=== PATIENT | male | born 1970 | race Caucasian/White ===

== ENCOUNTER → 2023-04-20 10:26 | Outpatient (BNVA) | payer MEDICARE, MEDICAID, SELFPAY | PROVIDERS: PCP Family Medicine; Referring Provider Family Medicine; Visit Provider Dermatology | DX: L30.0 Nummular dermatitis (principal); D22.39 Melanocytic nevi of other parts of face; D22.5 Melanocytic nevi of trunk | CPT/HCPCS: 99213 ==

== ENCOUNTER → 2024-04-12 10:39 | Outpatient (BNVA) | payer MEDICARE, MEDICAID, SELFPAY | PROVIDERS: PCP Family Medicine; Referring Provider Family Medicine; Visit Provider Student in an Organized Health Care Education/Training Program | DX: M16.11 Unilateral primary osteoarthritis, right hip; M25.851 Other specified joint disorders, right hip | CPT/HCPCS: 73502; 99204 ==

== ENCOUNTER → 2024-05-28 13:53 | Outpatient (BNVA) | payer MEDICARE, MEDICAID, SELFPAY | PROVIDERS: PCP Family Medicine; Visit Provider Student in an Organized Health Care Education/Training Program | DX: M17.11 Unilateral primary osteoarthritis, right knee | CPT/HCPCS: 20610; 73560; 73562; 73565; 99213; J3301 ==

== ENCOUNTER → 2024-07-12 08:01 | Outpatient (BNVA) | payer MEDICARE, MEDICAID, SELFPAY | PROVIDERS: PCP Family Medicine; Visit Provider Student in an Organized Health Care Education/Training Program | DX: M16.11 Unilateral primary osteoarthritis, right hip (principal) | CPT/HCPCS: 20610; 77002; J3301 ==

== ENCOUNTER → 2024-12-24 09:10 | Outpatient (BNVA) | payer MEDICARE, MEDICAID, SELFPAY | PROVIDERS: PCP Family Medicine; Visit Provider Student in an Organized Health Care Education/Training Program | DX: M21.372 Foot drop, left foot (principal); M16.11 Unilateral primary osteoarthritis, right hip; M25.372 Other instability, left ankle | CPT/HCPCS: 99213 ==

== ENCOUNTER 2024-12-24 10:08 | Outpatient (CLI) | payer MEDICARE, MEDICAID, SELFPAY | END 2024-12-24 10:09 | disposition home or self-care (01) | LOC: SPT 10:10 | PROVIDERS: PCP Family Medicine; Visit Provider Student in an Organized Health Care Education/Training Program | DX: Z46.89 Encounter for fitting and adjustment of other specified devices (principal); M25.372 Other instability, left ankle; M24.572 Contracture, left ankle | CPT/HCPCS: 97760; L1902 ==

== ENCOUNTER 2025-07-02 05:01 | Observation (INO) | payer OTHER, MEDICAID, SELFPAY ==
[2025-07-02] VITALS (16 sets, daily range): BP systolic 118–181; BP diastolic 71–118; PULSE 81–128; RESP 16–20; TEMP 36.8–38.5; O2SAT 90–93; BMI 24.3; BMI 25.8
--- OUTSIDE RECORDS SUMMARY | 2025-07-02 05:09 | XMS_ITS | Clinical Summary ---
Author Organization [employer] Address [address] [facility] [address] Parker: Epic Prelude ADT [place] [address] Care Team Providers Care Substitute School Nurse Name Role Phone Unavailable Primary Care Provider Unavailabl e Allergies Active Allergy Reactions Criticality Noted Date Comments Fish Containing Products Hives High 11/03/2015 Heparin Hives High 11/03/2015 Penicillins Hives High 11/03/2015 Tomato Hives High 11/03/2015 Medications clonazePAM (KlonoPIN) 0.5 mg Tablet Take 0.5 mg by mouth 2 times daily. Active bisacodyL (DULCOLAX) 10 mg Suppository Insert 10 mg by rectum daily. Active ESCITALOPRAM OXALATE ORAL Take 20 mg by mouth one time only. Active gabapentin (NEURONTIN) 600 mg tablet Take 600 mg by mouth 4 times daily. Active guaiFENesin (HUMIBID) 400 mg Tablet Take 400 mg by mouth every 4 hours. Active ibuprofen (MOTRIN) 800 mg tablet Take 800 mg by mouth every 6 hours as needed for Pain, Mild. Active lisinopriL (PRINIVIL) 20 mg tablet Take 20 mg by mouth daily. Active mirtazapine (REMERON) 30 mg tablet Take 30 mg by mouth daily at bedtime. Active naloxone HCl (NALOXONE INJECTION) 2 mL by Injection route. Active HYDROcodone-acet aminophen (NORCO) 10-325 mg Tablet Take 1 Tablet by mouth every 4 hours as needed for Pain, Moderate. Active omeprazole (PriLOSEC) 40 mg Capsule, Delayed Release(E.C.) Take 40 mg by mouth 2 times daily. Active OXcarbazepine (TRILEPTAL) 600 mg tablet Take 600 mg by mouth 3 times daily. Active albuterol sulfate HFA 90 mcg/actuation aerosol inhaler Take 2 Puffs by inhalation every 6 hours as needed for Shortness of Breath. Active medroxyPROGESTER one (PROVERA) 5 mg tablet Take 5 mg by mouth daily. Active QUEtiapine (SEROquel) 100 mg tablet Take 100 mg by mouth daily at bedtime. Active risperiDONE (RisperDAL) 2 mg tablet Take 2 mg by mouth 2 times daily. Active tamsulosin (FLOMAX) 0.4 mg capsuleIndicatio ns:Urinary hesitancy,BPH with obstruction/lowe r urinary tract symptoms Take 1 Capsule (0.4 mg) by mouth daily. 90 Capsule 4 4 Active tiZANidine (ZANAFLEX) 2 mg Tablet Take 2 mg by mouth 2 times daily. Active cetirizine (ZyrTEC) 10 mg tablet Take 10 mg by mouth daily. Active clobetasoL (TEMOVATE) 0.05 % Ointment Apply to affected area 2 times daily. Active DOCUSATE CALCIUM ORAL Take by mouth. Activ e aluminum - magnesium - simethicone (MYLANTA) 200-200-20 mg/5 mL Suspension Take 10 mL by mouth every 6 hours as needed for Dyspepsia. Active amLODIPine (NORVASC) 10 mg tablet Take 10 mg by mouth daily. Active atorvastatin (LIPITOR) 40 mg tablet Take 40 mg by mouth daily. Active baclofen (LIORESAL) 20 mg tablet Take 20 mg by mouth 3 times daily. Active busPIRone (BUSPAR) 15 mg Tablet Take 15 mg by mouth 3 times daily. Active oxyBUTYnin (DITROPAN XL) 5 mg Extended Release 24 hour tablet Take 1 Tablet (5 mg) by mouth daily. 30 Tablet 3 5 Active Active Problems Problem Noted Date Diagnosed Date Seizure 02/18/2025 Primary osteoarthritis of right knee 05/09/2017 Old complex tear of lateral meniscus of right kn ee 04/04/2017 Chondromalacia of knee 04/04/2017 Cigarette dependence 11/15/2016 Hemiplegia and hemiparesis f ollowing cerebral infarction affecting left non-dominant side 11/12/2016 Chronic right-sided low back pain without sciati ca 11/12/2016 Iliofemoral ligament sprain of left hip - MRI confirmed tear 04/26/2016 Hyperlipidemia 01/22/2016 Pulmonary emphysema 01/22/2016 Post-traumatic seizures 01/22/2016 Encephalopathy, unspecified 01/22/2016 Neuralgia and neuritis, unspecified 01/22/2016 Impacted cerumen, bilateral 01/22/2016 Essential hypertension 01/22/2016 Heart failure, unspecified 01/22/2016 Other asthma 01/22/2016 Depressive disorder, not elsewhere classified Antisocial personality disorder 01/22/2016 Generalized anxiety disorder 01/22/2016 Hereditary and idiopathic neuropathy, unspecifie d 01/22/2016 Dry eye syndrome of both lacrimal glands 016 Nausea 01/22/2016 Nutritional deficiency 01/22/2016 Local infection of the skin and subcutaneous tissue, unspecified 01/22/2016 Functional dyspepsia 01/22/2016 Constipation 01/22/2016 Primary insomnia 01/22/2016 Cough 01/22/2016 Acute gastric ulcer without hemorrhage or perfor ation 01/22/2016 Chronic gastric ulcer withou t hemorrhage and without perforation 01/22/2016 Restlessness and agitation 01/22/2016 Arthritis of left hip 01/22/2016 Encounters Date Type Department Care Team Description 06/30/2025 Orders Only [facility] [place] [phone] Micheline Rizo FNP BPH with obstruction/lower urinary tract symptoms (Primary Dx); Urinary hesitancy; Gross hematuria 06/24/2025 External Device Data STL ABSTRACTION Provider, Abstract 06/19/2025 Results Follow-Up [facility] [place] [phone] Michleine Rizo FNP XR VIDEOURODYNAMICS 06/18/2025 6:43 AM CDT - 06/18/2025 11:59 PM CDT Hospital Encounter [facility] [address] [place] [phone] Micheline Rizo FNP Discharge Disposition: Home or Self Care 05/14/2025 External Device Data STL ABSTRACTION Provider, Abstract 04/23/2025 External Device Data STL ABSTRACTION Provider, Abstract 04/23/2025 External Device Data STL ABSTRACTION Provider, Abstract 04/10/2025 Orders Only [facility] [address] [facility] [address] [place] [phone] Mariel Morales RN Urinary hesitancy (Primary Dx); BPH with obstruction/lower urinary tract symptoms 04/10/2025 [facility]phone [facility] [place] [address] [place] [address] Micheline Rizo FNP Needs Orders Written 04/09/2025 Abstract [facility] [address] [facility] [address] [place] [address] Yasmeen Robels 04/08/2025 9:00 AM CDT [facility] [place] [address] [place] [address] Micheline Rizo FNP BPH with obstruction/lower urinary tract symptoms (Primary Dx); Urinary hesitancy; Elevated PSA from Last 3 Months Family History Medical History Relation Name Comments Blindness Maternal Grandmother Cataract Maternal Grandmother Macular Degen Maternal Grandmother Relation Name Status Comments Maternal Grandmother Social History Tobacco Use Types Packs/Day Years Used Date Smoking Tobacco: Every Day Cigarettes Smokeless Tobacco: Never Tobacco Cessation:Ready to Q uit: Not Asked; Counseling Given: Not Answered Alcohol Use Standard Drinks/Week Comments No 0 (1 standard drink = 0.6 oz pur e alcohol) Sex and Gender Information Value Date Recorded Sex Assigned at Not on file Legal Sex Male 12:32 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 Gender Identity Not on file Sexual Orientation Not on file Last Filed Vital Signs Vital Sign Reading Time Taken Comments Blood Pressure 118/74 02/18/2025 11:34 AM CDT Pulse 87 02/18/2025 11:34 AM CDT Temperature 37.1 C (98.8 F) 02/18/2025 11:34 AM CDT Respiratory Rate 20 02/18/2025 11:3 4 AM CDT Oxygen Saturation 94% 02/18/2025 11: 34 AM CDT Inhaled Oxygen Concentration - - Weight 91.5 kg (201 lb 12.8 oz) 025 11:34 AM CDT Height 193 cm (6' 4 ) 02/18/2025 11:34 AM CDT Body Mass Index 24.56 02/18/2025 11:34 AM CDT Plan of Treatment Upcoming Encounters Date Type Department Care Team (Late st Contact Info) Description 07/17/2025 9:30 AM CDT Office Visit [facility] [address] [place] [address] Micheline Rizo FNP [address] [place] [address] 08/19/2025 10:00 AM APPARATUS CLEANER Appointment [facility] [place] [address] [place] [address] Gian Walton MD [address] [place] [address] Health Maintenance Due Date Last Done Comments Pre-Diabetes and Diabetes Screening 1970 HEPATITIS B VACCINES (1 of 3 - 19+ 3-dose series) 1987 DTAP/TDAP/TD VACCINES (1 - Tdap) 01/20/2006 01/20/20 06 FIT-DNA Q 3 years 2013 FIT/FOBT Q 1 year 2013 Flex Sig/CT Colonography Q 5 years 2013 ZOSTER VACCINE (1 of 2) 2018 INFLUENZA VACCINE (#1) 2025 COLORECTAL SCREENING 07/08/2025 07/08/2015, 07/08/20 15 Colorectal Cancer Screening 07/08/2025 Procedures Procedure Name Priority Date/Time Associated Diagnosis Comments XR VIDEOURODYNAMICS Routine 06/18/2025 8 :22 AM CDT Urinary hesitancy BPH with obstruction/lower urinary tract symptoms from Last 3 Months Results * XR VIDEOURODYNAMICS (06/18/2025 8:22 AM CDT) Anatomical Region Laterality Modality Pelvis Computed Radiogr aphy Impressions 06/18/2025 1:40 PM CDT : Detrusor function is present with findings compatible with OAB and obstruction-clinical correlation needed Florin Elias MD Narrative 06/18/2025 1:40 PM CDT COMPLEX VIDEO URODYNAMICS DATE: @ENCDATE@ UROFLOW: The patient voided 150 ml at a peak flow of 44 ml/sec for the baseline flow test with a 2 with a strain pattern residual. CYSTOMETRY: The 7-Vietnamese urodynamic catheter, rectal catheter, and patch EMG electrodes were placed. Filling rate was 40 ml/min. First sensation of filling was noted at 85 ml. Bladder capacity was 185 ml. The bladder capacity was reached, so we stopped filling. A high pressure uninhibited detrusor contraction occurred and resulted in voiding all bladder contents The pressure was about 50 cm H2O. There was moderate EMG activity present. [place] PRESSURE TESTING: Stress maneuvers were used at bladder capacity. The bladder neck was closed. All video loops were negative for stress incontinence. FLOW PRESSURE STUDY: For the flow pressure study the patient could not void anymore as his bladder was empty Micheline Rizo DIE CASTING MACHINE SETTER DIAGNOSTIC IMAGING ORDERAB LES Final Result from Last 3 Months Insurance [facility] DUAL COMPLETE O [facility] [id number] [facility] [id number] [facility] [place] [id number] RX [employer] RX Member Subscriber Plan / Payer (Ef fective 2024-Present) Name:Cy Blankenship Relation to Subscriber:Not on file Name:Cy Blankenship Subscriber ID:Not on file Date of :1970 Payer ID:Not on file Group ID:[id number] Type:RX Medicare Part D Address: [place] RODRIGUEZ
--- OUTSIDE RECORDS SUMMARY | 2025-07-02 05:09 | XMS_ITS | Encounter Summary ---
Author Organization [facility] Address [address] [place] [address] Care Team Providers Care Oil Sprayer Name Role Phone Juan Watson MD Primary Care Provider Reason for Visit * Reason Comments Med Refill Encounter Details Date Type Department Care Team (Late st Contact Info) Description 02/24/2025 Refill [facility] [place] - Primary Care [address] [place] [address] Juna Watson MD [address] [facility] [place] [address] Chronic pain syndrome Social History Tobacco Use Types Packs/Day Years Used Date Smoking Tobacco: Every Day Cigarettes Smokeless Tobacco: Never Alcohol Use Standard Drinks/Week Comments Defer 0 (1 standard drink = 0.6 oz pur e alcohol) PHQ-2 Answer Date Recorded PHQ-2 Score 0 10/28/2024 Sex and Gender Information Value Date Recorded Sex Assigned at Not on file Legal Sex Male 2:52 PM CDT Gender Identity Not on file Sexual Orientation Not on file documented as of this encounter Plan of Treatment Not on file documented as of this encounter Visit Diagnoses Diagnosis Chronic pain syndrome documented in this encounter Additional Health Concerns Health Status Noted Date Alive and well 03/21/2023 Assessment Noted Time PHQ-9 Depression Total Score: 0 10/28/19 25 1:57 PM SCHOOL 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
--- OUTSIDE RECORDS SUMMARY | 2025-07-02 05:09 | XMS_ITS | Encounter Summary ---
Author Organization [employer] Address [address] [place] [address] Care Team Providers Care Reed Man Name Role Phone Unavailable Primary Care Provider Unavailabl e Reason for Referral * Outpatient Services (Routine) - Authorized Specialty Diagnoses / Procedures Referred By Jennifer jewell Referred To Contact Diagnoses BPH with obstruction/lower urinary tract symptoms Urinary hesitancy Procedures CYSTOSCOPY Micheline Rizo FNP [address] [place] [address] [address] [place] [address] Phone: tel: fax: Referral ID Status Reason Start Date Expiration Date V isits Requested Visits Authorized [id number] Authorized 07/01/2025 09/29/2025 1 1 Encounter Details Date Type Department Care Team (Late st Contact Info) Description 06/30/2025 Orders Only [facility] [address] [address] Micheline Rizo FNP [address] [place] [phone] BPH with obstruction/lower urinary tract symptoms (Primary Dx); Urinary hesitancy; Gross hematuria Social History Tobacco Use Types Packs/Day Years Used Date Smoking Tobacco: Every Day Cigarettes Smokeless Tobacco: Never Alcohol Use Standard Drinks/Week Comments No 0 (1 standard drink = 0.6 oz pur e alcohol) Sex and Gender Information Value Date Recorded Sex Assigned at Not on file Legal Sex Male 12:32 PM 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 TESTER Gender Identity Not on file Sexual Orientation Not on file documented as of this encounter Plan of Treatment Upcoming Encounters Date Type Department Care Team (Late st Contact Info) Description 07/17/2025 9:30 AM CDT Office Visit [facility] [address] [place] [phone] Micheline Rizo FNP [address] [facility] [address] [place] [address] 08/19/2025 10:00 AM DAIRY TESTER Appointment [facility] Neu[facility] [address] [place] [address] Gian Walton MD [address] [place] [phone] Scheduled Orders Name Type Priority Associated Diagnoses Orde r Schedule CYSTOSCOPY Procedure Routine BPH with obstruction/lower urinary tract symptoms Urinary hesitancy Expected: 07/17/2025, Expires: 10/15/2025 documented as of this encounter Visit Diagnoses Diagnosis BPH with obstruction/lower urinary tract symptoms- Primary Hypertrophy of prostate with urinary obstruction and other lower urinary tract symptoms (LUTS) Urinary hesitancy Gross hematuria documented in this encounter
--- OUTSIDE RECORDS SUMMARY | 2025-07-02 05:09 | XMS_ITS | Encounter Summary ---
Author Organization [facility] Address [address] [place] [address] Care Team Providers Care Rn Managed Care Name Role Phone Juan Watson MD Primary Care Provider Reason for Visit * Reason Comments Med Refill Encounter Details Date Type Department Care Team (Late st Contact Info) Description 02/24/2025 Refill [facility] [place] - Primary Care [address] [place] [address] Min Godwin MD [address] [facility] [address] [place], [place] [id number] Chronic pain syndrome Social History Tobacco Use [...] Total Score: 0 10/28/19 25 1:57 PM 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
--- OUTSIDE RECORDS SUMMARY | 2025-07-02 05:09 | XMS_ITS | Clinical Summary ---
Author Organization [facility] Address [address] [place] [address] Care Team Providers Care Tool And Die Assembler Name Role Phone Juan Watson MD Primary Care Provider Allergies Active Allergy Reactions Criticality Noted Date Comments Adhesive Unknown 03/16/2023 Fish Containing Products Unknown 03/16/2023 Heparin Unknown 03/16/2023 Penicillin Unknown 03/16/2023 Tomato Unknown 03/16/2023 Medications amLODIPine (NORVASC) 10 MG tablet Take 10 mg by mouth in the morning. Active atorvastatin (LIPITOR) 40 MG tablet Take 40 mg by mouth nightly. Active baclofen (LIORESAL) 20 MG tablet Take 20 mg by mouth in the morning and 20 mg at noon and 20 mg in the evening. Active bisacodyL (DULCOLAX) 5 mg EC tablet Take 10 mg by mouth daily as needed. Active menthol 2 % gel Apply 1 Application topically as needed in the morning and 1 Application as needed in the evening. Active busPIRone (BUSPAR) 10 MG tablet Take 10 mg by mouth in the morning and 10 mg in the evening. Active clonazePAM (KLONOPIN) 1 MG tablet Take 1 mg by mouth in the morning and 1 mg in the evening. Active fluticasone propionate (FLOVENT DISKUS) 50 mcg/actuation diskus inhaler Inhale 1 puff in the morning and 1 puff in the evening. Active gabapentin (NEURONTIN) 300 mg capsule Take 300 mg by mouth in the morning and 300 mg at noon and 300 mg in the evening. Active alum-mag hydroxide-simeth (MAALOX) 200-200-20 mg/5 mL suspension Take 30 mL by mouth every 4 (four) hours as needed. Active hydrOXYzine (ATARAX) 25 MG tablet Take 25 mg by mouth in the morning and 25 mg in the evening. Active lisinopriL (PRINIVIL) 20 MG tablet Take 20 mg by mouth in the morning. Active magnesium hydroxide (MILK OF MAGNESIA) 2,400 mg/10 mL CONCENTRATED oral suspension Take 10 mL by mouth as needed in the morning and 10 mL as needed at noon and 10 mL as needed in the evening and 10 mL as needed before bedtime. Active OXcarbazepine (TRILEPTAL) 600 MG tablet Take 600 mg by mouth in the morning and 600 mg at noon and 600 mg in the evening. Active albuterol 90 mcg/puff inhl inhaler Inhale 2 puffs in the morning and 2 puffs at noon and 2 puffs in the evening. Active risperiDONE (RisperDAL) 3 MG tablet Take 3 mg by mouth in the morning and 3 mg in the evening. Active tiZANidine (ZANAFLEX) 2 MG tablet Take 2 mg by mouth in the morning and 2 mg in the evening. Active traZODone (DESYREL) 100 MG tablet Take 200 mg by mouth nightly. Active triamcinolone acetonide (KENALOG) 0.5% cream Apply 1 application. topically as needed in the morning and 1 application. as needed in the evening. Active cetirizine (ZyrTEC) 10 MG tablet Take 10 mg by mouth in the morning. Active fluticasone propionate (FLONASE) 50 mcg/actuation nasal spray Administer 1 spray into each nostril in the morning. Active dextromethorphan -guaifenesin (MUCINEX-DM) 30-600 mg tablet Take 1 tablet by mouth every 12 (twelve) hours. Active HYDROcodone-acet aminophen (NORCO) 10-325 mg per tabletIndication s:Chronic pain syndrome Take 1 tablet by mouth every 12 (twelve) hours. Max Daily Amount: 2 tablets 60 tablet 06/16/20 25 Active HYDROcodone-acet aminophen (NORCO) 10-325 mg per tabletIndication s:Chronic pain syndrome Take 1 tablet by mouth every 12 (twelve) hours. Max Daily Amount: 2 tablets 60 tablet 05/02/20 25 08/27/2 025 Discontin ued(Reord er) HYDROcodone-acet aminophen (NORCO) 10-325 mg per tabletIndication s:Chronic pain syndrome Take 1 tablet by mouth every 12 (twelve) hours. 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) 03/16/2023 Antisocial personality disorder 03/16/2023 Gastric ulcer 03/16/2023 Mixed hyperlipidemia 03/16/2023 Pemphigus 03/16/2023 Seizure disorder 03/16/2023 Neuropathy 03/16/2023 Dry eye syndrome of both eyes 03/16/2023 Primary insomnia 03/16/2023 Dental caries 03/16/2023 Other constipation 03/16/2023 Flail joint, right knee 03/16/2023 Old complex tear of lateral meniscus of right kn ee 04/04/2017 Chronic gastric ulcer withou t hemorrhage and without perforation 01/22/2016 Resolved Problems Problem Noted Date Diagnosed Date Resolved Date Chronic abdominal pain 09/21/202308/05 CHF (congestive heart failure) 03/16/2023 11/07/2023 Vitamin deficiency 03/16/2023 Iliofemoral ligament sprain of left hip 04/26/2016 11/04/2024 Encounters Date Type Department Care Team Description 06/16/2025 Refill [facility] [place] - [facility] [address] [facility] [address] [place] [address] Marlene [place]e RN Chronic pain syndrome 06/04/2025 Refill [facility] [place] - [facility] [address] [facility] [address] [place] [address] Marlene [place]e RN Chronic pain syndrome 05/01/2025 Refill [facility] [place] - [facility] [address] [facility] [address] [place] [address] Marlene [place]e RN Chronic pain syndrome 04/01/2025 Refill [facility] [place] - Primary Care [address] [facility] [address] [place] [address] Mitali Haddad LPN Chronic pain syndrome from Last 3 Months Social History Tobacco Use Types Packs/Day Years Used Date Smoking Tobacco: Every Day Cigarettes Smokeless Tobacco: Never Tobacco Cessation:Ready to Q uit: Not Asked; Counseling Given: Not Answered Alcohol Use Standard Drinks/Week Comments Defer 0 [...] Sign Reading Time Taken Comments Blood Pressure 120/64 06/23/2025 9:44 AM CDT Pulse 57 06/23/2025 9:44 AM CDT Temperature 37 C (98.6 F) 06/23/2025 9:44 AM CDT Respiratory Rate 16 06/23/2025 9:44 AM CDT Oxygen Saturation 96% 06/23/2025 9:44 AM CDT Inhaled Oxygen Concentration - - Weight 87.8 kg (193 lb 9.6 oz) 06/23/2025 9:44 A M CDT Height 182.9 cm (6') 06/23/2025 9:44 AM CDT Body Mass Index 26.26 06/23/2025 9:44 AM CDT Plan of Treatment Health Maintenance Due Date Last Done Comments Hepatitis B Vaccines (1 of 3 - 19+ 3-dose series) 1987 Pneumococcal Vaccine: 50+ Years (1 of 2 - PCV) 1987 Td, Tdap Vaccines Adult 1987 Colonoscopy 2013 Shingrix (ZOSTER RECOMBINANT) (1 of 2) 2018 Influenza Vaccination (#1) 2025 Medicare Annual Wellness 03/14/2026 025, 03/14/2025, 12/29/2023, Additional history exists HIB Vaccines Aged Out No longer eligi ble based on patient's age to complete this topic HPV Vaccines Aged Out No longer eligi ble based on patient's age to complete this topic Hepatitis A Vaccines Aged Out No long er eligible based on patient's age to complete this topic IPV Vaccines Aged Out No longer eligi ble based on patient's age to complete this topic Meningococcal Vaccines Aged Out No lo nger eligible based on patient's age to complete this topic RSV Mab Nirsevimab (Beyfortus) <20 months Aged Out No longer eligibl e based on patient's age to complete this topic Rotavirus Vaccines Aged Out No longer eligible based on patient's age to complete this topic [place] [address] [place] [address] DUAL COMPLETE [facility] Care Teams Tool And Die Assembler Relationship Specialty Start Date End Date Juan Watson MD [address] [place] [id number] PCP - General Family Medicine 03/15/23
--- OUTSIDE RECORDS SUMMARY | 2025-07-02 05:09 | XMS_ITS | Encounter Summary ---
Author Organization [facility] Address [address] [place] [address] Care Team Providers Care Skiing Teacher Name Role Phone Unavailable Primary Care Provider Unavailabl e Encounter Details Date Type Department Care Team (Late st Contact Info) Description 06/24/2025 External Device Data [place] ABSTRACTION Provider, Abstract NO ADDRESS ON FILE Social History Tobacco Use Types Packs/Day Years Used Date Smoking Tobacco: Every Day Cigarettes Smokeless Tobacco: Never Alcohol Use Standard Drinks/Week Comments No 0 (1 standard drink = 0.6 oz pur e alcohol) Sex and Gender Information Value Date Recorded Sex Assigned at Not on file Legal Sex Male 12:32 PM NURSERY SUPERVISOR Gender Identity Not on file Sexual Orientation Not on file documented as of this encounter Plan of Treatment Upcoming Encounters Date Type Department Care Team (Late st Contact Info) Description 07/17/2025 9:30 AM CDT Office Visit [facility] Urology [address] [phone] Micheline Rizo FNP [address] [place] [phone] 08/19/2025 10:00 AM NURSERY SUPERVISOR Appointment [facility] Neurology [facility] [place] [address] [place] [address] Gian Walton MD [address] [place] [phone] documented as of this encounter Visit Diagnoses Not on filedocumented in this encounter
--- OUTSIDE RECORDS SUMMARY | 2025-07-02 05:09 | XMS_ITS | Encounter Summary ---
Author Organization [facility] Address [address] [place] [address] Care Team Providers Care Seam Presser Name Role Phone Juan Watson MD Primary Care Provider Encounter Details Date Type Department Care Team (Late st Contact Info) Description 01/31/2024 Orders Only [facility] [place] [facility] [address] [place] [address] Mitali Haddad LPN Social History Tobacco Use Types Packs/Day Years Used Date Smoking Tobacco: Every Day Cigarettes Smokeless Tobacco: Never Alcohol Use Standard Drinks/Week Comments Defer 0 (1 standard drink = 0.6 oz pur e alcohol) PHQ-2 Answer Date Recorded PHQ-2 Score 0 01/01/2024 Sex and Gender Information Value Date Recorded Sex Assigned at Not on file Legal Sex Male 2:52 PM CDT Gender Identity Not on file Sexual Orientation Not on file documented as of this encounter Plan of Treatment Not on file documented as of this encounter Visit Diagnoses Not on filedocumented in this encounter Additional Health Concerns Health Status Noted Date Alive and well 03/21/2023 Assessment Noted Time A fall risk assessment has been complete d for the patient 01/01/2024 12:52 PM CDT documented as of this encounter Care Teams Seam Presser Relationship Specialty Start Date End Date Juan Watson MD [address] [place] [address] PCP - General Family Medicine 03/15/23 documented as of this encounter
--- OUTSIDE RECORDS SUMMARY | 2025-07-02 05:09 | XMS_ITS | Encounter Summary ---
Author Organization [facility] Address [address] [place] [address] Care Team Providers Care Nursery Rn Name Role Phone Unavailable Primary Care Provider Unavailabl e Encounter Details Date Type Department Care Team (Late st Contact Info) Description 03/26/2002 Outpatient Historical [facility] Tho Lal MD [address] [phone] Social History Tobacco Use Types Packs/Day Years Used Date Smoking Tobacco: Never Assessed Sex and Gender Information Value Date Recorded Sex Assigned at Not on file Legal Sex Male 12:32 PM COLORIST Gender Identity Not on file Sexual Orientation Not on file documented as of this encounter Plan of Treatment Upcoming Encounters Date Type Department Care Team (Late st Contact Info) Description 07/17/2025 9:30 AM CDT Office Visit [facility] Urology [address] [address] Mciheline Rizo FNP [address] [place] [address] [address] [place] [phone] 08/19/2025 10:00 AM COLORIST Appointment [facility] Neurology Clinic [place] [address] [place] [address] Gian Walton MD [address] [place] [phone] documented as of this encounter Visit Diagnoses Not on filedocumented in this encounter
--- OUTSIDE RECORDS SUMMARY | 2025-07-02 05:09 | XMS_ITS | Encounter Summary ---
Author Organization [facility] Address [address] [place] [address] Care Team Providers Care Flute Polisher Name Role Phone Unavailable Primary Care Provider Unavailabl e Encounter Details Date Type Department Care Team (Late Contact Info) Description 06/19/2025 Results Follow-Up [address] [phone] Micheline Rizo FNP [address] [place] [phone] [facility]R [facility] Social History Tobacco Use Types Packs/Day Years Used Date Smoking Tobacco: Every Day Cigarettes Smokeless Tobacco: Never Alcohol Use Standard Drinks/Week Comments No 0 (1 standard drink = 0.6 oz pur e alcohol) Sex and Gender Information Value Date Recorded Sex Assigned at Not on file 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 Gender Identity Not on file Sexual Orientation Not on file documented as of this encounter Plan of Treatment Upcoming Encounters Date Type Department Care Team (Late Contact Info) Description 07/17/2025 9:30 AM CDT Office Visit [address] [phone] Micheline Rizo FNP [address] [place] [phone] 08/19/2025 10:00 AM MCAT TUTOR Appointment [facility] [place] [address] [place] [address] Gian Walton MD [address] [place] [address] documented as of this encounter Visit Diagnoses Not on filedocumented in this encounter
--- OUTSIDE RECORDS SUMMARY | 2025-07-02 05:09 | XMS_ITS | Encounter Summary ---
Author Organization [facility] Address 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 Gender Identity Not on file Sexual Orientation Not on file documented as of this encounter Plan of Treatment Upcoming Encounters Date Type Department Care Team (Late st Contact Info) Description 07/17/2025 9:30 AM CDT Office Visit [facility] Urology [address] [phone] Micheline Rizo FNP [address] [place] [address] [address] [place] [phone] 08/19/2025 10:00 AM MAIL ROOM CLERK Appointment [facility] Neurology Clinic [place] [address] [place] [address] Gian Walton MD [address] [place] [phone] documented as of this encounter Visit Diagnoses Not on filedocumented in this encounter
--- NOTE | 2025-07-02 05:11 | XRR_ITS ---
PROCEDURE INFORMATION: Exam: XR Chest Exam date and time: 07/02/2025 5:15 AM Age: 54 years old Clinical indication: Fever; Additional info: Possible sepsis TECHNIQUE: Imaging protocol: Radiologic exam of the chest. Views: 1 view. COMPARISON: No relevant prior studies available. FINDINGS: Lungs: Unremarkable. No consolidation. Pleural spaces: Unremarkable. No pleural effusion. No pneumothorax. Heart/Mediastinum: Unremarkable. No cardiomegaly. Bones/joints: Unremarkable. XR/XR chest 1V portable [id number] IMPRESSION: No acute findings.
--- NOTE | 2025-07-02 05:15 | ECG_ITS ---
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 Measurements Intervals Parks Rate: 126 P: 63 [place]: 183 QRS: 73 QRSD: 89 T: 80 QT: 335 QTc: 486 Interpretive Statements SINUS TACHYCARDIA NONSPECIFIC T-WAVE ABNORMALITY ABNORMAL RHYTHM ECG No previous ECG available for comparison Electronically Signed On 07-02-2025 22:15:32 CDT by Toney Rodriguez M.D. [email or web address]
--- NOTE | 2025-07-02 05:16 | W.ED.FEVER ---
Documented by User: Al Mayen MD 07/02/25 05:46 HPI - Fever General: Chief Complaint: Fever Stated Complaint: possible sepsis Time Seen by Provider: 07/02/25 05:01 Source: patient and EMS Mode of arrival: EMS Limitations: no limitations History of Present Illness: 54-year-old male here from long term he has had a previous massive stroke he states he is really only able to stand to transfer and is wheelchair-bound. He states that over the last 2 days he has had slight cough fever chills and is not feeling well. He denies any pain anywhere he has a history of skin abrasion ulcers to bilateral buttocks with minimal skin breakdown. Per EMS patient was found tonight tachycardic in febrile at 103. Here he is febrile tachycardic in 130s blood pressure has been hypertensive blood pressure currently is 167/110. She denies any abdominal chest pain. Associated symptoms: Reports chills Related Data Home Medications ?Medication ?Instructions ?Recorded ?Confirmed Lactobacillus acidophilus 10 mg PO DAILY 04/12/24 12/24/24 (Acidophilus capsule) acetaminophen 325 mg capsule 325 mg PO QID PRN 04/12/24 12/24/24 albuterol sulfate 90 mcg/actuation 1 inh inhalation QID 04/12/24 12/24/24 aerosol inhaler aluminum-mag hydroxide-simethicone 15 ml PO QID PRN 04/12/24 12/24/24 200 mg-200 mg-20 mg/5 mL oral susp (Brianna-Lanta) amlodipine 10 mg tablet 10 mg PO DAILY 04/12/24 12/24/24 atorvastatin 40 mg tablet 40 mg PO DAILY 04/12/24 12/24/24 baclofen 20 mg tablet 20 mg PO DAILY 04/12/24 12/24/24 bisacodyl 10 mg rectal suppository 10 mg [place] DAILY PRN 04/12/24 12/24/24 (Dulcolax (bisacodyl)) bisacodyl 5 mg tablet,delayed 5 mg PO DAILY 04/12/24 12/24/24 release buspirone 15 mg tablet 15 mg PO BID 04/12/24 12/24/24 carboxymethylcellulose sodium 1 % 1 drp ophthalmic (eye) BID 04/12/24 12/24/24 eye drops (Artificial Tears (carboxymethylcellulose)) celecoxib 100 mg capsule (Celebrex) 100 mg PO BID 04/12/24 12/24/24 cetirizine 10 mg tablet (Zyrtec) 10 mg PO DAILY PRN 04/12/24 12/24/24 clobetasol 0.05 % scalp solution 1 applic topical DAILY 04/12/24 12/24/24 clonazepam 0.5 mg tablet 0.25 mg PO BID 04/12/24 12/24/24 docusate sodium 100 mg capsule 100 mg PO DAILY 04/12/24 12/24/24 escitalopram oxalate 10 mg tablet 10 mg PO DAILY 04/12/24 12/24/24 fluticasone furoate 100 1 inh inhalation DAILY 04/12/24 12/24/24 mcg/actuation blister powder for inhalation gabapentin 600 mg tablet 600 mg PO DAILY 04/12/24 12/24/24 hydrocodone 10 mg-acetaminophen 1 tab PO Q6H PRN 04/12/24 12/24/24 325 mg tablet lisinopril 20 mg tablet 20 mg PO DAILY 04/12/24 12/24/24 magnesium hydroxide 2,400 mg/10 mL 5 ml PO DAILY PRN 04/12/24 12/24/24 oral suspension (Milk Of Magnesia Concentrated) menthol 2 % topical gel (Blue Gel) 1 applic topical DAILY PRN 04/12/24 12/24/24 mirtazapine 30 mg tablet 30 mg PO DAILY 04/12/24 12/24/24 naloxone 2 mg/2 mL syringe kit 2 mg IM Q2M PRN 04/12/24 12/24/24 omeprazole 40 mg capsule,delayed 40 mg PO DAILY 04/12/24 12/24/24 release oxcarbazepine 600 mg tablet 600 mg PO BID 04/12/24 12/24/24 risperidone 2 mg tablet 2 mg PO DAILY 04/12/24 12/24/24 trazodone 50 mg tablet 25 mg PO DAILY 04/12/24 12/24/24 triamcinolone acetonide 0.5 % 1 applic topical DAILY 04/12/24 12/24/24 topical cream Previous Rx's ?Medication ?Instructions ?Recorded Lace Up Ankle Brace #1 ea 12/24/24 Allergies Allergy/AdvReac Type Severity Reaction Status Date / Time adhesive tape Allergy Intermediate Unknown Verified 12/24/24 09:29 Fish Containing Products Allergy Intermediate Unknown Verified 12/24/24 09:29 heparin Allergy Intermediate Unknown Verified 12/24/24 09:29 Penicillins Allergy Intermediate Unknown Verified 12/24/24 09:29 tomato Allergy Intermediate Unknown Verified 12/24/24 09:29 Review of Systems Const: Reports: fever(s), chills and body aches Resp: Reports: non-productive cough : Denies: difficulty urinating PFSH ED PFSH: Medical History GERD (gastroesophageal reflux disease) Depression Hyperlipidemia HTN (hypertension) Degenerative joint disease of right hip Social History Smoking and tobacco/nicotine status: current every day tobacco/nicotine user Physical Exam Const: COMMON NORMALS: patient oriented x3 HENMT: COMMON NORMALS: normocephalic and atraumatic HEAD & SCALP: normocephalic and atraumatic Eye: COMMON NORMALS: conjunctivae normal CONJUNCTIVA: Yes conjunctivae normal Neck/C-Spine: COMMON NORMALS: full ROM and supple Chest: COMMONS NORMALS: normal inspection of the chest Resp: COMMON NORMALS: normal respiratory effort, No retractions, No use of accessory muscles and clear to auscultation bilaterally AUSCULTATION: clear to auscultation bilaterally Cardio: COMMON NORMALS: regular rhythm and No murmurs present (Cardio) RATE: tachycardic RHYTHM: regular rhythm GI: COMMON NORMALS: Normal to inspection, nondistended, normoactive bowel sounds present, Soft to palpation, non-tender and no masses PALPATION: Yes Soft to palpation Extremity: COMMON NORMALS: normal to inspection and full ROM OTHER: Very slight skin breakdown bilateral buttocks no ulcer no cellulitis Neuro: COMMON NORMALS: patient oriented x3, moves all extremities and no focal motor deficits Psych: COMMON NORMALS: mental status grossly normal, Normal thought process present and cooperative THOUGHT PROCESS: Normal thought process present Skin: COMMON NORMALS: no rashes or lesions noted and no wounds GENERAL SKIN EXAM: no rashes or lesions noted Course Vital Signs: Vital signs: Vital Signs Temperature 101.3 F H 07/02/25 05:01 Pulse Rate 123 H 07/02/25 06:42 Respiratory Rate 18 07/02/25 06:42 Blood Pressure 143/83 07/02/25 06:42 Pulse Oximetry 91 07/02/25 06:42 Oxygen Delivery Me thod Room Air 07/02/25 05:40 MDM - Fever Medical Decision Making Patient presents her long term with fever along with tachycardia and cough. Did order sepsis set including fluids and antibiotics and blood culture. Labs and imaging are all still pending at this time and care turned over to Dr. Vaughan. Medical Records I reviewed the patient's medical records. Lab Data I reviewed the patient's lab results. 07/02/25 05:40 07/02/25 05:40 Radiology Impressions Chest X-Ray 07/02/25 05:11 IMPRESSION: No acute findings. Laboratory Results WBC 16.89 10^3/uL (3.29-11.43) H 07/02/25 05:40 RBC 4.25 10^6/uL (3.85-5.65) 07/02/25 05:40 Hgb 12.20 g/dL (11.27-16.99) 07/02/25 05:40 Hct 37.2 % (37-53) 07/02/25 05:40 MCV 87.5 fl (82-101) 07/02/25 05:40 MCH 28.7 pg (27-33) 07/02/25 05:40 MCHC 32.8 g/dL (30-55) 07/02/25 05:40 RDW 13.1 % (12.1-15.1) 07/02/25 05:40 Plt Count 244 10^3/cmm (157-399) 07/02/25 05:40 MPV 7.7 fL (7.4-10.4) 07/02/25 05:40 Neut % (Auto) 83.4 % 07/02/25 05:40 Lymph % (Auto) 5.3 % 07/02/25 05:40 [place] % (Auto) 9.1 % 07/02/25 05:40 Eos % (Auto) 1.1 % 07/02/25 05:40 Baso % (Auto) 0.3 % 07/02/25 05:40 Neut # (Auto) 14.08 10^3/uL (1.8-7.7) H 07/02/25 05:40 Lymph # (Auto) 0.9 10^3/uL (0.8-4.8) 07/02/25 05:40 [place] # (Auto) 1.5 10^3/uL (0.2-0.9) H 07/02/25 05:40 Eos # (Auto) 0.2 10^3/uL (0.0-0.8) 07/02/25 05:40 Baso # (Auto) 0.1 10^3/uL (0.0-0.1) 07/02/25 05:40 Nucleated RBC % (auto) 0 % 07/02/25 05:40 Nucleated RBCs # 0.0 /100WBC 07/02/25 05:40 PT 13.20 SECONDS (12.1-14.9) 07/02/25 05:40 INR 0.93 (0.8-1.2) 07/02/25 05:40 Sodium 132 mmol/L (136-145) L 07/02/25 05:40 Potassium 4.2 mmol/L (3.5-5.1) 07/02/25 05:40 Chloride 94 mmol/L (98-107) L 07/02/25 05:40 Carbon Dioxide 27 mmol/L (22-29) 07/02/25 05:40 Anion Gap 15.2 (5-19) 07/02/25 05:40 BUN 15 mg/dL (6-20) 07/02/25 05:40 Creatinine 0.5 mg/dL (0.7-1.2) L 07/02/25 05:40 GFR Calculation 172.0 mL/min (90-130) H 07/02/25 05:40 Glucose 111 mg/dL (65-115) 07/02/25 05:40 Calculated Osmolality 276 mOsm/kg (285-295) L 07/02/25 05:40 Lactic Acid 2.2 mmol/L (0.5-2.2) 07/02/25 05:40 Calcium 8.8 mg/dL (8.5-10.5) 07/02/25 05:40 Magnesium 1.8 mg/dL (1.7-2.3) 07/02/25 05:40 Total Bilirubin 0.2 mg/dL (0.15-1.2) 07/02/25 05:40 AST 20 U/L (0-40) 07/02/25 05:40 ALT 17 U/L (0-41) 07/02/25 05:40 Alkaline Phosphatase 82 U/L (40-130) 07/02/25 05:40 Total Protein 7.1 g/dL (6.6-8.7) 07/02/25 05:40 Albumin 4.1 g/dL (3.5-5.2) 07/02/25 05:40 Globulin 3.0 g/dL (1.3-4.6) 07/02/25 05:40 Procalcitonin 0.21 ng/mL (0-0.5) 07/02/25 05:40 Urine Color Yellow (Yellow) 07/02/25 06:02 Urine Appearance Clear (CLEAR) 07/02/25 06:02 Urine pH 7.0 (5-7) 07/02/25 06:02 Ur Specific [place] 1.015 (1.005-1.030) 07/02/25 06:02 Urine Protein Negative (Negative) 07/02/25 06:02 Urine Glucose (UA) Negative (Normal) 07/02/25 06:02 Urine Ketones Negative (Negative) 07/02/25 06:02 Urine Blood Negative (Negative) 07/02/25 06:02 Urine Nitrate Negative (Negative) 07/02/25 06:02 Urine Bilirubin Negative (Negative) 07/02/25 06:02 Urine Urobilinogen 0.2 mg/dL (Negative) 07/02/25 06:02 Ur Leukocyte Esterase Negative (Negative) 07/02/25 06:02 Urine RBC 0-2 /hpf (0-2) 07/02/25 06:02 Urine WBC 0-5 /hpf (0-5) 07/02/25 06:02 Ur Squamous Epith Cells 0-5 /hpf (0-5) 07/02/25 06:02 Amorphous Sediment Not Reportable 07/02/25 06:02 Urine Bacteria None seen /hpf (NONE) 07/02/25 06:02 Hyaline Casts 0-4 /lpf H 07/02/25 06:02 Influenza A (PCR) Negative (Negative) 07/02/25 06:01 Influenza Type B (PCR) Negative (Negative) 07/02/25 06:01 RSV (PCR) Negative (Negative) 07/02/25 06:01 SARS-CoV-2 (PCR) Negative (Negative) 07/02/25 06:01 All radiology interpretation(s) finalized by discharge EKG Data EKG 1: I personally reviewed and interpreted this EKG as follows: EKG interpretation date: 07/02/25 EKG interpretation time: 05:34 Interpretation: sinus tachy hr [address] elevation qrs 89 qtc 410 Discharge Plan Discharge Clinical Impression: Sepsis, Fever of unknown origin, History of CVA (cerebrovascular accident) Sign Out Sign Out Data: Patient Sign Out occurred on 07/02/25 at 06:01. Patient's care was discussed, and care was transferred from Al Mayen MD to Moses Vaughan DO. Coding Level of Care Code ED Codifier for Chg Fwd Documented by User: Moses Vaughan DO 07/02/25 07:51 HPI - Fever General: Chief Complaint: Fever Stated Complaint: possible sepsis Time Seen by Provider: 07/02/25 05:01 Related Data Home Medications ?Medication ?Instructions ?Recorded ?Confirmed Lactobacillus acidophilus 10 mg PO DAILY 04/12/24 12/24/24 (Acidophilus capsule) acetaminophen 325 mg capsule 325 mg PO QID PRN 04/12/24 12/24/24 albuterol sulfate 90 mcg/actuation 1 inh inhalation QID 04/12/24 12/24/24 aerosol inhaler aluminum-mag hydroxide-simethicone 15 ml PO QID PRN 04/12/24 12/24/24 200 mg-200 mg-20 mg/5 mL oral susp (Brianna-Lanta) amlodipine 10 mg tablet 10 mg PO DAILY 04/12/24 12/24/24 atorvastatin 40 mg tablet 40 mg PO DAILY 04/12/24 12/24/24 baclofen 20 mg tablet 20 mg PO DAILY 04/12/24 12/24/24 bisacodyl 10 mg rectal suppository 10 mg [place] DAILY PRN 04/12/24 12/24/24 (Dulcolax (bisacodyl)) bisacodyl 5 mg tablet,delayed 5 mg PO DAILY 04/12/24 12/24/24 release buspirone 15 mg tablet 15 mg PO BID 04/12/24 12/24/24 carboxymethylcellulose sodium 1 % 1 drp ophthalmic (eye) BID 04/12/24 12/24/24 eye drops (Artificial Tears (carboxymethylcellulose)) celecoxib 100 mg capsule (Celebrex) 100 mg PO BID 04/12/24 12/24/24 cetirizine 10 mg tablet (Zyrtec) 10 mg PO DAILY PRN 04/12/24 12/24/24 clobetasol 0.05 % scalp solution 1 applic topical DAILY 04/12/24 12/24/24 clonazepam 0.5 mg tablet 0.25 mg PO BID 04/12/24 12/24/24 docusate sodium 100 mg capsule 100 mg PO DAILY 04/12/24 12/24/24 escitalopram oxalate 10 mg tablet 10 mg PO DAILY 04/12/24 12/24/24 fluticasone furoate 100 1 inh inhalation DAILY 04/12/24 12/24/24 mcg/actuation blister powder for inhalation gabapentin 600 mg tablet 600 mg PO DAILY 04/12/24 12/24/24 hydrocodone 10 mg-acetaminophen 1 tab PO Q6H PRN 04/12/24 12/24/24 325 mg tablet lisinopril 20 mg tablet 20 mg PO DAILY 04/12/24 12/24/24 magnesium hydroxide 2,400 mg/10 mL 5 ml PO DAILY PRN 04/12/24 12/24/24 oral suspension (Milk Of Magnesia Concentrated) menthol 2 % topical gel (Blue Gel) 1 applic topical DAILY PRN 04/12/24 12/24/24 mirtazapine 30 mg tablet 30 mg PO DAILY 04/12/24 12/24/24 naloxone 2 mg/2 mL syringe kit 2 mg IM Q2M PRN 04/12/24 12/24/24 omeprazole 40 mg capsule,delayed 40 mg PO DAILY 04/12/24 12/24/24 release oxcarbazepine 600 mg tablet 600 mg PO BID 04/12/24 12/24/24 risperidone 2 mg tablet 2 mg PO DAILY 04/12/24 12/24/24 trazodone 50 mg tablet 25 mg PO DAILY 04/12/24 12/24/24 triamcinolone acetonide 0.5 % 1 applic topical DAILY 04/12/24 12/24/24 topical cream Previous Rx's ?Medication ?Instructions ?Recorded Lace Up Ankle Brace #1 ea 12/24/24 Allergies Allergy/AdvReac Type Severity Reaction Status Date / Time adhesive tape Allergy Intermediate Unknown Verified 12/24/24 09:29 Fish Containing Products Allergy Intermediate Unknown Verified 12/24/24 09:29 heparin Allergy Intermediate Unknown Verified 12/24/24 09:29 Penicillins Allergy Intermediate Unknown Verified 12/24/24 09:29 tomato Allergy Intermediate Unknown Verified 12/24/24 09:29 PFS ED PFSH: Medical History GERD (gastroesophageal reflux disease) Depression Hyperlipidemia HTN (hypertension) Degenerative joint disease of right hip Social History Smoking and tobacco/nicotine status: current every day tobacco/nicotine user Course Vital Signs: Vital signs: Vital Signs Temperature 101.3 F H 07/02/25 05:01 Pulse Rate 123 H 07/02/25 06:42 Respiratory Rate 18 07/02/25 06:42 Blood Pressure 143/83 07/02/25 06:42 Pulse Oximetry 91 07/02/25 06:42 Oxygen Delivery Me thod Room Air 07/02/25 05:40 MDM - Fever Medical Decision Making Patient presents her long term with fever along with tachycardia and cough. Did order sepsis set including fluids and antibiotics and blood culture. Labs and imaging are all still pending at this time and care turned over to Dr. Vaughan. Care assumed at change of shift chart reviewed. Seen and examined patient exam findings unchanged from above. He does have skin breakdown more prominent on the proximal left posterior thigh mildly erythematous does not appear to be any abscess there is no active drainage. No significant induration lesser extent on the right posterior thigh no sacral ulcers or decubitus none on the low back or in the posterior shoulders. He does not have any meningeal signs. He has contractures in deficits on the left from his previous stroke patient tells me he has had a craniotomy. He has no abdominal pain. He has had a slight cough chest x-ray does not show anything acute and flu COVID and RSV is negative lactic acid was 2.2. Dr. Bell started on mirtazapine and vancomycin and given fluid bolus. Despite the full 30 mL/kg fluid bolus his tachycardia has persisted. He has not been hypotensive. Cultures have been done as well. Will admit with leukocytosis and sepsis continue IV antibiotics discussed with hospitalist or orders written Lab Data 07/02/25 05:40 07/02/25 05:40 Radiology Impressions Chest X-Ray 07/02/25 05:11 IMPRESSION: No acute findings. Laboratory Results WBC 16.89 10^3/uL (3.29-11.43) H 07/02/25 05:40 RBC 4.25 10^6/uL (3.85-5.65) 07/02/25 05:40 Hgb 12.20 g/dL (11.27-16.99) 07/02/25 05:40 Hct 37.2 % (37-53) 07/02/25 05:40 MCV 87.5 fl (82-101) 07/02/25 05:40 MCH 28.7 pg (27-33) 07/02/25 05:40 MCHC 32.8 g/dL (30-55) 07/02/25 05:40 RDW 13.1 % (12.1-15.1) 07/02/25 05:40 Plt Count 244 10^3/cmm (157-399) 07/02/25 05:40 MPV 7.7 fL (7.4-10.4) 07/02/25 05:40 Neut % (Auto) 83.4 % 07/02/25 05:40 Lymph % (Auto) 5.3 % 07/02/25 05:40 [place] % (Auto) 9.1 % 07/02/25 05:40 Eos % (Auto) 1.1 % 07/02/25 05:40 Baso % (Auto) 0.3 % 07/02/25 05:40 Neut # (Auto) 14.08 10^3/uL (1.8-7.7) H 07/02/25 05:40 Lymph # (Auto) 0.9 10^3/uL (0.8-4.8) 07/02/25 05:40 [place] # (Auto) 1.5 10^3/uL (0.2-0.9) H 07/02/25 05:40 Eos # (Auto) 0.2 10^3/uL (0.0-0.8) 07/02/25 05:40 Baso # (Auto) 0.1 10^3/uL (0.0-0.1) 07/02/25 05:40 Nucleated RBC % (auto) 0 % 07/02/25 05:40 Nucleated RBCs # 0.0 /100WBC 07/02/25 05:40 PT 13.20 SECONDS (12.1-14.9) 07/02/25 05:40 INR 0.93 (0.8-1.2) 07/02/25 05:40 Sodium 132 mmol/L (136-145) L 07/02/25 05:40 Potassium 4.2 mmol/L (3.5-5.1) 07/02/25 05:40 Chloride 94 mmol/L (98-107) L 07/02/25 05:40 Carbon Dioxide 27 mmol/L (22-29) 07/02/25 05:40 Anion Gap 15.2 (5-19) 07/02/25 05:40 BUN 15 mg/dL (6-20) 07/02/25 05:40 Creatinine 0.5 mg/dL (0.7-1.2) L 07/02/25 05:40 GFR Calculation 172.0 mL/min (90-130) H 07/02/25 05:40 Glucose 111 mg/dL (65-115) 07/02/25 05:40 Calculated Osmolality 276 mOsm/kg (285-295) L 07/02/25 05:40 Lactic Acid 2.2 mmol/L (0.5-2.2) 07/02/25 05:40 Calcium 8.8 mg/dL (8.5-10.5) 07/02/25 05:40 Magnesium 1.8 mg/dL (1.7-2.3) 07/02/25 05:40 Total Bilirubin 0.2 mg/dL (0.15-1.2) 07/02/25 05:40 AST 20 U/L (0-40) 07/02/25 05:40 ALT 17 U/L (0-41) 07/02/25 05:40 Alkaline Phosphatase 82 U/L (40-130) 07/02/25 05:40 Total Protein 7.1 g/dL (6.6-8.7) 07/02/25 05:40 Albumin 4.1 g/dL (3.5-5.2) 07/02/25 05:40 Globulin 3.0 g/dL (1.3-4.6) 07/02/25 05:40 Procalcitonin 0.21 ng/mL (0-0.5) 07/02/25 05:40 Urine Color Yellow (Yellow) 07/02/25 06:02 Urine Appearance Clear (CLEAR) 07/02/25 06:02 Urine pH 7.0 (5-7) 07/02/25 06:02 Ur Specific [place] 1.015 (1.005-1.030) 07/02/25 06:02 Urine Protein Negative (Negative) 07/02/25 06:02 Urine Glucose (UA) Negative (Normal) 07/02/25 06:02 Urine Ketones Negative (Negative) 07/02/25 06:02 Urine Blood Negative (Negative) 07/02/25 06:02 Urine Nitrate Negative (Negative) 07/02/25 06:02 Urine Bilirubin Negative (Negative) 07/02/25 06:02 Urine Urobilinogen 0.2 mg/dL (Negative) 07/02/25 06:02 Ur Leukocyte Esterase Negative (Negative) 07/02/25 06:02 Urine RBC 0-2 /hpf (0-2) 07/02/25 06:02 Urine WBC 0-5 /hpf (0-5) 07/02/25 06:02 Ur Squamous Epith Cells 0-5 /hpf (0-5) 07/02/25 06:02 Amorphous Sediment Not Reportable 07/02/25 06:02 Urine Bacteria None seen /hpf (NONE) 07/02/25 06:02 Hyaline Casts 0-4 /lpf H 07/02/25 06:02 Influenza A (PCR) Negative (Negative) 07/02/25 06:01 Influenza Type B (PCR) Negative (Negative) 07/02/25 06:01 RSV (PCR) Negative (Negative) 07/02/25 06:01 SARS-CoV-2 (PCR) Negative (Negative) 07/02/25 06:01 Discharge Plan Discharge Clinical Impression: Sepsis, Fever of unknown origin, History of CVA (cerebrovascular accident) Sign Out Sign Out Data: Patient Sign Out occurred on 07/02/25 at 06:01. Patient's care was discussed, and care was transferred from Al Mayen MD to Moses Vaughan DO. Coding Level of Care Code ED Codifier for Danny Pelaez
[2025-07-02 05:53] LABS: Hematocrit 37.2 % (37-53); Hemoglobin 12.20 g/dL (11.27-16.99); Mean Corpuscular HGB Conc 32.8 g/dL (30-55); Mean Corpuscular Hemoglobin 28.7 pg (27-33); Mean Corpuscular Volume 87.5 fl (82-101); Nucleated Red Blood Cells % 0 %; Platelet Count 244 10^3/cmm (157-399); Red Blood Count 4.25 10^6/uL (3.85-5.65); White Blood Count 16.89 10^3/uL (3.29-11.43)
[2025-07-02] MEDS: meropenem 1,000 mg SDV 1000 MG IVP ×3 (06:02→20:30)
[2025-07-02 06:04] LABS: INR 0.93 (0.8-1.2); Prothrombin Time 13.20 SECONDS (12.1-14.9)
[2025-07-02 06:10] LABS: Glucose Urine UA Negative (Normal); Nitrate Urine Negative (Negative); Specific Gravity, Urine 1.015 (1.005-1.030)
[2025-07-02 06:13] LABS: Alanine Aminotransferase 17 U/L (0-41); Albumin Level 4.1 g/dL (3.5-5.2); Alkaline Phosphatase 82 U/L (40-130); Anion Gap 15.2 (5-19); Aspartate Amino Transferase 20 U/L (0-40); Blood Urea Nitrogen 15 mg/dL (6-20); Calcium 8.8 mg/dL (8.5-10.5); Carbon Dioxide 27 mmol/L (22-29); Chloride 94 mmol/L (98-107); Creatinine Clr Calc Pharmacy 195.5175; Globulin 3.0 g/dL (1.3-4.6); Glucose 111 mg/dL (65-115); Magnesium 1.8 mg/dL (1.7-2.3); Osmolality Calculated 276 mOsm/kg (285-295); Potassium 4.2 mmol/L (3.5-5.1); Sodium 132 mmol/L (136-145); Total Protein 7.1 g/dL (6.6-8.7)
[2025-07-02 06:14] LABS: Lactic Sepsis W/Reflex 2.2 mmol/L (0.5-2.2)
[2025-07-02 06:15] LABS: Add Urine Microscopic? YES
[2025-07-02 06:18] LABS: Procalcitonin 0.21 ng/mL (0-0.5)
[2025-07-02] MEDS: morphine 4 mg/mL SDV 1 mL IVP (06:35)
[2025-07-02] MEDS: ondansetron 2 mg/ML SDV 2 mL 4 MG IVP ×2 (06:35→22:37)
[2025-07-02 06:46] LABS: Respiratory Syncytial Virus Ce NEGATIVE (Negative); SARS-CoV-2 PCR NEGATIVE (Negative)
[2025-07-02 07:37] LABS: Reflex Lactate Order REFLEX LACTIC ORDERD
[2025-07-02 09:04] LABS: Lactic Acid level (Lactate) 0.8 mmol/L (0.5-2.2)
--- NOTE | 2025-07-02 10:28 | PM.HP ---
Providers/Chief Complaint Admitting Physician: Андрей Sainz Primary Care Provider: Juan Watson MD Chief Complaint: possible sepsis History of Present Illness Cy Blankenship is a 54 year old gentleman with a history of cerebrovascular accident (CVA), prior craniotomy, degenerative joint disease (DJD), and hypertension, currently temporarily living in a custodial. Baseline functional status: bed-bound and wheelchair-bound, able to stand only for transfers. Over the preceding two days, had slight cough, fever, chills, and malaise. Reports mild cough; sometimes brings up phlegm but not often. Denies choking or coughing with eating/drinking. Denies vomiting, diarrhea, headache, dysuria, hematuria, blood in stool, or melena. Reports a rash on the left thigh that began about a month ago. Has a history of skin abrasion ulcers and pressure ulcers; ED noted pressure sores. Denies having a port or ventriculoperitoneal (CLEANING AND WASHING EQUIPMENT OPERATOR) shunt. Prior craniotomy involved replacement of skull portion; no back surgery; no joint replacements. Reports some eczema. No urinary catheter in place normally; mentions a urology probe performed recently (location unclear). History of shingles several times, usually on the back; current area is not in the usual spot. Denies dental/oropharyngeal complaints, gastrointestinal complaints, or urinary complaints. Code status discussed: desires full resuscitation ( I want to live ). Identifies guardian as Latanya Frank ([place]), described as a public guardian. Social history obtained below. Review of Systems Const: Denies: fever(s), chills, body aches or malaise ENMT: Denies: throat pain Card: Denies: chest pain, edema, pre-syncope or dyspnea on exertion Resp: Reports: productive cough (Sometimes.); Denies: dyspnea, change in phlegm color or hemoptysis GI: Denies: abdominal pain, nausea, vomiting, diarrhea, constipation, hematochezia or melena : Denies: flank pain, difficulty urinating, urinary frequency or hematuria Musc: Denies: back pain, joint swelling or joint redness Skin/Breast: Reports: rash; Denies: new lesions Neuro: Denies: headache(s) or confusion Medications/Allergies Home Medications ?Medication ?Instructions ?Recorded ?Confirmed ?Last Taken ?Type Lactobacillus acidophilus 10 mg PO DAILY 04/12/24 12/24/24 Unknown History (Acidophilus capsule) acetaminophen 325 mg capsule 325 mg PO QID PRN Fever Or Pain 04/12/24 07/02/25 Unknown History albuterol sulfate 90 mcg/actuation 1 inh inhalation QID 04/12/24 12/24/24 Unknown History aerosol inhaler aluminum-mag hydroxide-simethicone 15 ml PO QID PRN 04/12/24 12/24/24 Unknown History 200 mg-200 mg-20 mg/5 mL oral susp (Brianna-Lanta) amlodipine 10 mg tablet 10 mg PO DAILY 04/12/24 12/24/24 Unknown History atorvastatin 40 mg tablet 40 mg PO DAILY 04/12/24 12/24/24 Unknown History baclofen 20 mg tablet 20 mg PO DAILY 04/12/24 12/24/24 Unknown History bisacodyl 10 mg rectal suppository 10 mg OH DAILY PRN 04/12/24 12/24/24 Unknown History (Dulcolax (bisacodyl)) bisacodyl 5 mg tablet,delayed 5 mg PO DAILY 04/12/24 12/24/24 Unknown History release buspirone 15 mg tablet 15 mg PO BID 04/12/24 12/24/24 Unknown History carboxymethylcellulose sodium 1 % 1 drp ophthalmic (eye) BID 04/12/24 12/24/24 Unknown History eye drops (Artificial Tears (carboxymethylcellulose)) celecoxib 100 mg capsule (Celebrex) 100 mg PO BID 04/12/24 12/24/24 Unknown History cetirizine 10 mg tablet (Zyrtec) 10 mg PO DAILY PRN 04/12/24 12/24/24 Unknown History clobetasol 0.05 % scalp solution 1 applic topical DAILY 04/12/24 12/24/24 Unknown History clonazepam 0.5 mg tablet 0.25 mg PO BID 04/12/24 12/24/24 Unknown History docusate sodium 100 mg capsule 100 mg PO DAILY 04/12/24 12/24/24 Unknown History escitalopram oxalate 10 mg tablet 10 mg PO DAILY 04/12/24 12/24/24 Unknown History fluticasone furoate 100 1 inh inhalation DAILY 04/12/24 12/24/24 Unknown History mcg/actuation blister powder for inhalation gabapentin 600 mg tablet 600 mg PO DAILY 04/12/24 12/24/24 Unknown History hydrocodone 10 mg-acetaminophen 1 tab PO Q6H PRN 04/12/24 12/24/24 Unknown History 325 mg tablet lisinopril 20 mg tablet 20 mg PO DAILY 04/12/24 12/24/24 Unknown History magnesium hydroxide 2,400 mg/10 mL 5 ml PO DAILY PRN 04/12/24 12/24/24 Unknown History oral suspension (Milk Of Magnesia Concentrated) menthol 2 % topical gel (Blue Gel) 1 applic topical DAILY PRN 04/12/24 12/24/24 Unknown History mirtazapine 30 mg tablet 30 mg PO DAILY 04/12/24 12/24/24 Unknown History naloxone 2 mg/2 mL syringe kit 2 mg IM Q2M PRN 04/12/24 12/24/24 Unknown History omeprazole 40 mg capsule,delayed 40 mg PO DAILY 04/12/24 12/24/24 Unknown History release oxcarbazepine 600 mg tablet 600 mg PO BID 04/12/24 12/24/24 Unknown History risperidone 2 mg tablet 2 mg PO DAILY 04/12/24 12/24/24 Unknown History trazodone 50 mg tablet 25 mg PO DAILY 04/12/24 12/24/24 Unknown History triamcinolone acetonide 0.5 % 1 applic topical DAILY 04/12/24 12/24/24 Unknown History topical cream Lace Up Ankle Brace #1 ea 12/24/24 12/24/24 Unknown Rx medroxyprogesterone 5 mg tablet 5 mg PO BEDTIME 07/02/25 07/02/25 07/01/25 19:00 History oxybutynin chloride 5 mg 5 mg PO QAM 07/02/25 07/02/25 07/01/25 07:00 History tablet,extended release 24 hr quetiapine 100 mg tablet 100 mg PO BEDTIME 07/02/25 07/02/25 07/01/25 19:00 History risperidone 0.5 mg tablet 0.5 mg PO BEDTIME depressive 07/02/25 07/02/25 Unknown History disorder tamsulosin 0.4 mg capsule 0.8 mg PO BEDTIME 07/02/25 07/02/25 07/01/25 20:00 History Allergies Allergy/AdvReac Type Severity Reaction Status Date / Time adhesive tape Allergy Intermediate Unknown Verified 12/24/24 09:29 Fish Containing Products Allergy Intermediate Unknown Verified 12/24/24 09:29 heparin Allergy Intermediate Unknown Verified 12/24/24 09:29 Penicillins Allergy Intermediate Unknown Verified 12/24/24 09:29 tomato Allergy Intermediate Unknown Verified 12/24/24 09:29 PFSH Acute PFSH: Medical History History of CVA (cerebrovascular accident) GERD (gastroesophageal reflux disease) Depression Hyperlipidemia HTN (hypertension) Degenerative joint disease of right hip Surgical History History of craniectomy Social History Smoking and tobacco/nicotine status: current every day tobacco/nicotine user cigarettes Number of cigarettes per day: 11-20 [ Other cigarette details: 14] Alcohol intake: former Former alcohol use details: Has not had any alcohol in several years Substance/Drug Use: former Former substance use details: Smoking THC cartridges over 6 months ago. 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 Vitals/I&O/Wt Last Vital Signs Temp 101.3 F H 07/02/25 05:01 Pulse 107 H 07/02/25 08:41 Resp 18 07/02/25 06:42 BP 125/86 07/02/25 08:41 Pulse Ox 91 07/02/25 08:41 O2 Del Method Room Air 07/02/25 10:08 07/01/25 07/02/25 07/02/25 22:59 06:59 14:59 Intake Total 250.0 / 250.0 2585.49 / 2585.49 Balance 250.0 / 250.0 2585.49 / 2585.49 Weight last 48 hrs Weight 91.172 kg Weight 86.183 kg Physical Exam Const: COMMON NORMALS: patient oriented x3 and alert GENERAL APPEARANCE: cooperative ORIENTATION/CONSCIOUSNESS: Yes awake HENMT: COMMON NORMALS: oropharynx normal OTHER: No oropharyngeal erythema, swelling, drainage, edentulous. No thrush. Neck/C-Spine: COMMON NORMALS: no JVD Resp: COMMON NORMALS: normal respiratory effort and clear to auscultation bilaterally AUSCULTATION: clear to auscultation bilaterally Cardio: COMMON NORMALS: no JVD, regular rhythm, S1 normal heart sound present, S2 normal heart sound present and No murmurs present (Cardio) RHYTHM: regular rhythm HEART SOUNDS: S1 normal heart sound present and S2 normal heart sound present GI: COMMON NORMALS: Normal to inspection, nondistended, normoactive bowel sounds present, Soft to palpation and non-tender PALPATION: Yes Soft to palpation Extremity: COMMON NORMALS: no joint enlargement and no pedal edema NARRATIVE EXTREMITY EXAM: Chronic left-sided paralysis, contractures. Neuro: COMMON NORMALS: patient oriented x3 SENSORIUM/ORIENTATION: Yes alert Skin: NARRATIVE SKIN EXAM: Left posterior lateral proximal thigh with macerated cracked skin with erythematous base in the irregular shaped large patch longest diameter about 30 cm without any active drainage, no blisters. No tunneling or undermining. Smaller, about 10 cm irregular shaped shallow ulceration L mid posterior lateral chest wall with some dry scaly skin at the borders, faint erythema at the base he states due to chronic eczema. No blisters, no drainage or crusting. Quick SOFA Score: Respiratory Rate: 18 Blood Pressure: 125/86 Yamileth Coma Scale: 15 qSOFA Score: 0 If qSOFA score 2 or greater, continue: Blood Pressure Mean: 109 Bilirubin (mg/dl): 0.2 Platelets (x10?/ml): 244 Creatinine (mg/dl): 0.5 Evaluation: Current stage of sepsis: sepsis Sepsis stage criteria used: [facility] Sep-1 and Sepsis-3 Focused Exam: Vital signs: Temp Pulse Resp BP Pulse Ox O2 Del Method 07/02/25 10:08 Room Air 07/02/25 08:41 107 H 125/86 91 07/02/25 08:21 107 H 143/92 92 Room Air 07/02/25 06:42 123 H 18 143/83 91 07/02/25 06:08 122 H 18 165/101 92 07/02/25 05:40 126 H 18 167/110 91 Room Air 07/02/25 05:01 101.3 F H 128 H 19 H 181/118 91 Room Air Cardiovascular exam: tachycardia Capillary refill: < 3 Seconds Skin exam: no mottling Date exam was performed: 07/02/25 Time exam was performed: 10:50 Sepsis Screen No Definite Risk Today, 08:21 Respiratory Rate, (12 - 18) 18 breaths/min Today, 06:42 Blood Pressure 125/86 mmHg Today, 08:41 Yamileth Coma Scale Score 15 Today, 10:08 Quick SOFA Score 0 Today, 08:21 SOFA Score: Yamileth Coma Scale Score 15 Today, 10:08 Blood Pressure Mean 109 mmHg Today, 08:21 Total Bilirubin, (0.15-1.2) 0.2 mg/dL Today, 05:40 Platelet Count, (157-399) 244 10^3/cmm Today, 05:40 Creatinine, (0.7-1.2) 0.5 mg/dL L Today, 05:40 Data 07/02/25 05:40 07/02/25 05:40 Micro: Microbiology 07/02/25 05:45 Blood Culture - Preliminary Blood SPECIMEN COLLECTED 07/02/25 05:40 Blood Culture - Preliminary Blood SPECIMEN COLLECTED A&P Assessment and plan 1. Sepsis: Sepsis without endorgan damage at this time. So far maintaining blood pressure. Presented from custodial with fever, chills, malaise; ED noted fever; initial concern for systemic infection. Concern for infection with systemic response discussed with patient. Source possibly from cellulitis of the left posterior lateral thigh with maceration and superficial/cellulitis of possibly previous eczema eruption. Reviewed vitals, CBC, INR, CMP, UA, viral swab for COVID, influenza, RSV, chest x-ray, EKG, ED provider note, discussed with ED provider. Without other obvious source. No evidence of DOCUMENT IMPROVEMENT SPECIALIST infection. He denies any foreign bodies, previously craniectomy with the skull fragment replaced, no CLEANING AND WASHING EQUIPMENT OPERATOR shunt, port or other foreign body including in joint replacement. Does not have chronic De Dios. No headache, neck pain, no AMS, no symptoms to suggest NMS or serotonin syndrome. Has history of shingles, there is an irregular shaped lesion on the left mid posterior lateral chest wall without any active blisters, no drainage, not suggestive of an active shingles lesion. He is edentulous, no oropharyngeal/gum problems. No dysphagia or odynophagia. Otherwise no other ENT/GI, , musculoskeletal complaints/problems that may suggest a source of sepsis. Remote history of IVDU, reports mitral polyps. Denies ever having a vegetation/endocarditis. Has been in remission for over 30 years without any recent relapse. Currently temporarily resides at a nursing facility. - Give broad-spectrum antibiotics (empiric) for treatment of cellulitis and broad antibiotic for coverage of sepsis. Monitor for risk of seizure with meropenem which has been started, will continue. Does have penicillin allergy. Monitor for risk of JULIETH with vancomycin. - Check broader viral panel - Follow up blood cultures Plan: Left thigh rash with possible cellulitis : Macerated rash on left proximal posterior-lateral thigh with erythema and moisture damage; plan to treat as cellulitis empirically. - Empirically treat for cellulitis (antibiotics) Eczematous eruption (left posterior-lateral chest) : Smaller eczematous irregular eruption without blisters; patient reports eczema history. Cough : Mild cough; intermittent phlegm; denies aspiration. - Order sputum culture if able to provide - [facility] Smoking: Discussed smoking cessation for 3-1/2 minutes. He has been trying to quit, has cut down to about 14 cigarettes/day. He declines nicotine patches which have not worked for him in the past. He is okay with lozenges as needed. HTN: Requesting to confirm home medications. Monitor blood pressures. Cardiac diet. Hx CVA with residual unilateral paresis Bedbound and wheelchair-bound, stands to transfer Eczema left chest, without active blisters, no drainage History of shingles, denies recent eruption, he states location is different than the location of the eczema above PDMP PDMP Reviewed: Not Reviewed Attestations Medical Necessity Statement*: Place in observation for additional assessment management of sepsis, secondary cellulitis of large eczematous lesion, assessment for other possible source. and High MDM includes amount and/or complexity of data reviewed/ordered [ resulted lab(s)/test(s), ordered lab(s)/test(s) and other healthcare professional discussion] and described risk of complication, morbidity or mortality of management as documented Diagnoses Sepsis A41.9
--- NOTE | 2025-07-02 11:35 | PHA.VACGOAL ---
Vancomycin Goal - Goal Vancomycin Goal:: 15-20 mg/L Vancomycin Indication:: Other (SEPSIS) - Therapy Current therapy:: Meropenem Day of therpy:: Day []of [] . Actual body weight (kg): 201 lb - Data Labs: WBC 16.89 10^3/uL (3.29-11.43) H 07/02/25 05:40 RBC 4.25 10^6/uL (3.85-5.65) 07/02/25 05:40 Hgb 12.20 g/dL (11.27-16.99) 07/02/25 05:40 Hct 37.2 % (37-53) 07/02/25 05:40 MCV 87.5 fl (82-101) 07/02/25 05:40 MCH 28.7 pg (27-33) 07/02/25 05:40 MCHC 32.8 g/dL (30-55) 07/02/25 05:40 RDW 13.1 % (12.1-15.1) 07/02/25 05:40 Sodium 132 mmol/L (136-145) L 07/02/25 05:40 Potassium 4.2 mmol/L (3.5-5.1) 07/02/25 05:40 Chloride 94 mmol/L (98-107) L 07/02/25 05:40 Carbon Dioxide 27 mmol/L (22-29) 07/02/25 05:40 Anion Gap 15.2 (5-19) 07/02/25 05:40 BUN 15 mg/dL (6-20) 07/02/25 05:40 Creatinine 0.5 mg/dL (0.7-1.2) L 07/02/25 05:40 GFR Calculation 172.0 mL/min (90-130) H 07/02/25 05:40 Last dialysis session:: N/A Treatment plan:: new consult Regimen:: LOADING DOSE OF 1000 MG X 1 GIVEN IN ER MAINTENANCE DOSE OF 1000 MG Q8H PER DOSING PROTOCOL Follow up:: WILL CONTINUE TO MONITOR AND FOLLOW UP DAILY
[2025-07-02 12:09] LABS: Coronavirus 229E,HKU1,NL63,OC4 Not Detected (NOT DETECT); Parainfluenza Virus Type 1 Not Detected (NOT DETECT); Parainfluenza Virus Type 2 Not Detected (NOT DETECT); Parainfluenza Virus Type 3 Not Detected (NOT DETECT); Parainfluenza Virus Type 4 Not Detected (NOT DETECT); SARS-COV-2 Not Detected (NOT DETECT)
--- NOTE | 2025-07-02 13:32 | PC.PHAR ---
PATIENT IS FROM [facility]
[2025-07-02] MEDS: HYDROcodone-acetaminophen 5-325 mg Tablet 1 TAB PO ×3 (13:43→22:32)
[2025-07-02] MEDS: artificial tears Op Soln 15 mL Btl 1 DROP EYE-BOTH (17:30)
--- NOTE | 2025-07-02 18:21 | PC.NURSE ---
Patient refuses. Patient refuses kenny and scds. patient educated on both.
[2025-07-03] VITALS (8 sets, daily range): BP systolic 148–175; BP diastolic 76–100; PULSE 58–101; RESP 15–18; TEMP 36.4–37.4; O2SAT 91–98
[2025-07-03 05:27] LABS: Hematocrit 34.5 % (37-53); Hemoglobin 11.30 g/dL (11.27-16.99); Mean Corpuscular HGB Conc 32.8 g/dL (30-55); Mean Corpuscular Hemoglobin 28.9 pg (27-33); Mean Corpuscular Volume 88.2 fl (82-101); Nucleated Red Blood Cells % 0 %; Platelet Count 234 10^3/cmm (157-399); Red Blood Count 3.91 10^6/uL (3.85-5.65); White Blood Count 18.01 10^3/uL (3.29-11.43)
[2025-07-03 05:45] LABS: Alanine Aminotransferase 16 U/L (0-41); Albumin Level 3.5 g/dL (3.5-5.2); Alkaline Phosphatase 68 U/L (40-130); Anion Gap 13.3 (5-19); Aspartate Amino Transferase 20 U/L (0-40); Blood Urea Nitrogen 7 mg/dL (6-20); Calcium 8.3 mg/dL (8.5-10.5); Carbon Dioxide 23 mmol/L (22-29); Chloride 101 mmol/L (98-107); Creatinine Clr Calc Pharmacy 254.0802; Globulin 2.9 g/dL (1.3-4.6); Glucose 121 mg/dL (65-115); Osmolality Calculated 277 mOsm/kg (285-295); Potassium 3.3 mmol/L (3.5-5.1); Sodium 134 mmol/L (136-145); Total Protein 6.4 g/dL (6.6-8.7)
[2025-07-03] MEDS: meropenem 1,000 mg SDV 1000 MG IVP ×3 (05:59→20:41)
[2025-07-03] MEDS: oxybutynin chloride XL 5 MG TABLET PO (06:43)
[2025-07-03] MEDS: lactobacillus 1 Tablet 1 TAB PO (08:34)
--- NOTE | 2025-07-03 16:47 | PM.PN ---
Subjective Subjective: Subjectively he is feeling better today. Fever has resolved. Denies new symptoms. Cough for the most part abated. Vitals/I&O/Wt Last Vital Signs Temp 98.6 F 07/03/25 16:09 Pulse 75 07/03/25 16:09 Resp 16 07/03/25 16:09 BP 172/91 07/03/25 16:09 Pulse Ox 92 07/03/25 16:09 O2 Del Method Room Air 07/03/25 16:09 FiO2 2 07/02/25 20:21 07/03/25 07/03/25 07/03/25 06:59 14:59 22:59 Intake Total 1198.333 / 5830.490 800 / 800 Output Total 200 / 2075 850 / 850 Balance 998.333 / 3755.490 -50 / -50 Weight last 48 hrs Weight 94.483 kg Weight 91.172 kg Weight 86.183 kg Physical Exam Const: COMMON NORMALS: patient oriented x3 and alert GENERAL APPEARANCE: cooperative ORIENTATION/CONSCIOUSNESS: Yes awake HENMT: COMMON NORMALS: oropharynx normal OTHER: No oropharyngeal erythema, swelling, drainage, edentulous. No thrush. Neck/C-Spine: COMMON NORMALS: no JVD Resp: COMMON NORMALS: normal respiratory effort and clear to auscultation bilaterally AUSCULTATION: clear to auscultation bilaterally Cardio: COMMON NORMALS: no JVD, regular rhythm, S1 normal heart sound present, S2 normal heart sound present and No murmurs present (Cardio) RATE: tachycardic RHYTHM: regular rhythm HEART SOUNDS: S1 normal heart sound present and S2 normal heart sound present GI: COMMON NORMALS: Normal to inspection, nondistended, normoactive bowel sounds present, Soft to palpation and non-tender PALPATION: Yes Soft to palpation Extremity: COMMON NORMALS: no joint enlargement and no pedal edema NARRATIVE EXTREMITY EXAM: Chronic left-sided paralysis, contractures. Neuro: COMMON NORMALS: patient oriented x3 SENSORIUM/ORIENTATION: Yes alert Skin: NARRATIVE SKIN EXAM: Left posterior lateral proximal thigh with macerated cracked skin with erythematous base in the irregular shaped large patch longest diameter about 30 cm without any active drainage, no blisters. No tunneling or undermining. Smaller, about 10 cm irregular shaped shallow ulceration L mid posterior lateral chest wall with some dry scaly skin at the borders, faint erythema at the base he states due to chronic eczema. No blisters, no drainage or crusting. GENERAL SKIN EXAM: no mottling Data 07/03/25 05:07 07/03/25 05:07 Micro: Microbiology 07/03/25 08:15 Gram Stain - Final Sputum - Expectorated Sputum 07/02/25 05:45 Blood Culture - Preliminary Blood NEGATIVE TO DATE 07/02/25 05:40 Blood Culture - Preliminary Blood NEGATIVE TO DATE A&P Assessment and plan 1. Sepsis: Sepsis resolving. Fever resolved. Tachycardia resolved. Reviewed CBC, leukocytosis with some worsening today up to 18,000. Reviewed preliminary blood culture, so far negative. Sputum culture has been collected although cough so far for the most part abated. Reviewed blood culture to confirm no bacteremia. Continue treatment of cellulitis of left proximal posterolateral thigh. In case no evidence of sepsis, no evidence of bacteremia, consider discharge with continued oral antibiotics. Subjectively he is feeling better. On presentation sepsis without end organ damage. Without evidence of septic shock. So far maintaining blood pressure. Presented from detention with fever, chills, malaise; ED noted fever; initial concern for systemic infection. Concern for infection with systemic response discussed with patient. Source possibly from cellulitis of the left posterior lateral thigh with maceration and superficial/cellulitis of possibly previous eczema eruption. Without other obvious source. No evidence of MOBILE DEVICE DEVELOPER infection. He denies any foreign bodies, previously craniectomy with the skull fragment replaced, no UX DESIGN MANAGER shunt, port or other foreign body including in joint replacement. Does not have chronic De Dios. No headache, neck pain, no AMS, no symptoms to suggest NMS or serotonin syndrome. Has history of shingles, there is an irregular shaped lesion on the left mid posterior lateral chest wall without any active blisters, no drainage, not suggestive of an active shingles lesion. He is edentulous, no oropharyngeal/gum problems. No dysphagia or odynophagia. Otherwise no other ENT/GI, , musculoskeletal complaints/problems that may suggest a source of sepsis. Remote history of IVDU, reports mitral polyps. Denies ever having a vegetation/endocarditis. Has been in remission for over 30 years without any recent relapse. Currently temporarily resides at a nursing facility. - For now continue broad-spectrum antibiotics (empiric) for treatment of cellulitis and broad antibiotic for coverage of sepsis. Monitor for risk of seizure with meropenem which has been started, will continue. Does have penicillin allergy. Monitor for risk of JULIETH with vancomycin. Reviewed broader viral panel - Follow up blood cultures Plan: Left thigh rash with possible cellulitis : Macerated rash on left proximal posterior-lateral thigh with erythema and moisture damage; plan to treat as cellulitis empirically. - Empirically treat for cellulitis (antibiotics) Eczematous eruption (left posterior-lateral chest) : Smaller eczematous irregular eruption without blisters; patient reports eczema history. Cough : Mild cough; intermittent phlegm; denies aspiration. Diet adjusted. Discussed with ST. - Follow-up sputum culture - [facility] appreciated Mild hypokalemia: Requested replacement. Recheck chemistry. Smoking: Discussed smoking cessation for 3-1/2 minutes. He has been trying to quit, has cut down to about 14 cigarettes/day. He declines nicotine patches which have not worked for him in the past. He is okay with lozenges as needed. HTN: Resume home medications. Monitor blood pressures. Cardiac diet. Hx CVA with residual unilateral paresis Bedbound and wheelchair-bound, stands to transfer Eczema left chest, without active blisters, no drainage History of shingles, denies recent eruption, he states location is different than the location of the eczema above PDMP PDMP Reviewed: Not Reviewed Attestations Medical Necessity Statement*: Continue observation for additional assessment management of sepsis, secondary cellulitis of large eczematous lesion, assessment for other possible source. and High MDM includes amount and/or complexity of data reviewed/ordered [ resulted lab(s)/test(s) and other healthcare professional discussion] as documented Diagnoses Sepsis A41.9
[2025-07-03] MEDS: HYDROcodone-acetaminophen 5-325 mg Tablet 1 TAB PO (19:30)
[2025-07-03] MEDS: ondansetron 2 mg/ML SDV 2 mL 4 MG IVP (19:30)
[2025-07-04] VITALS (9 sets, daily range): BP systolic 172–190; BP diastolic 86–98; PULSE 63–83; RESP 16–18; TEMP 36.4–37.1; O2SAT 90–94
--- NOTE | 2025-07-04 04:31 | PC.NURSE ---
pt BP continue to rise, call placed to dr. Maravilla and this nurse instructed to give 0900 lisinopril and amlodepine now.
[2025-07-04 04:35] LABS: Hematocrit 34.6 % (37-53); Hemoglobin 11.40 g/dL (11.27-16.99); Mean Corpuscular HGB Conc 32.9 g/dL (30-55); Mean Corpuscular Hemoglobin 28.9 pg (27-33); Mean Corpuscular Volume 87.6 fl (82-101); Nucleated Red Blood Cells % 0 %; Platelet Count 246 10^3/cmm (157-399); Red Blood Count 3.95 10^6/uL (3.85-5.65); White Blood Count 13.36 10^3/uL (3.29-11.43)
[2025-07-04] MEDS: meropenem 1,000 mg SDV 1000 MG IVP ×2 (04:49→13:59)
[2025-07-04] MEDS: oxybutynin chloride XL 5 MG TABLET PO (04:51)
[2025-07-04 04:56] LABS: Alanine Aminotransferase 17 U/L (0-41); Albumin Level 3.5 g/dL (3.5-5.2); Alkaline Phosphatase 74 U/L (40-130); Anion Gap 16.3 (5-19); Aspartate Amino Transferase 22 U/L (0-40); Blood Urea Nitrogen 6 mg/dL (6-20); Calcium 8.5 mg/dL (8.5-10.5); Carbon Dioxide 24 mmol/L (22-29); Chloride 99 mmol/L (98-107); Creatinine Clr Calc Pharmacy 338.7736; Globulin 3.3 g/dL (1.3-4.6); Glucose 117 mg/dL (65-115); Osmolality Calculated 281 mOsm/kg (285-295); Potassium 3.3 mmol/L (3.5-5.1); Sodium 136 mmol/L (136-145); Total Protein 6.8 g/dL (6.6-8.7)
[2025-07-04] MEDS: HYDROcodone-acetaminophen 5-325 mg Tablet 1 TAB PO ×3 (06:02→14:59)
[2025-07-04] MEDS: potassium chloride oral liq 20 mEq/15 mL UDC 40 MEQ PO (09:32)
[2025-07-04] MEDS: artificial tears Op Soln 15 mL Btl 1 DROP EYE-BOTH (09:32)
[2025-07-04] MEDS: lactobacillus 1 Tablet 1 TAB PO (09:33)
--- NOTE | 2025-07-04 10:48 | PM.DCS ---
Discharge Providers Date of Admission: 07/02/25 08:16 Date of Discharge: July 04, 2025 Attending Provider at Admission: Андрей Sainz Attending Provider at Discharge: Андрей Sainz Primary Care Provider: Juan Watson MD Diagnoses at Discharge Discharge Diagnosis 1. Sepsis: Reason for Visit Reason for Visit: possible sepsis Hospital Course Hospital Course 54 year old male presenting from intermediate for cellulitis. Sepsis w/o shock - resolving. Fever resolved. Tachycardia resolved. - leukocytosis improved today. - blood culture negative to date. - Sputum culture pending still, no cough - possibly previous eczema with superinfection. - viral panel negative - Empirically treat for cellulitis (antibiotics) - For now continue broad-spectrum antibiotics (empiric) for treatment of cellulitis and broad antibiotic for coverage of sepsis. Monitor for risk of seizure with meropenem which has been started, will continue. Does have penicillin allergy. Monitor for risk of JULIETH with vancomycin. Eczematous eruption (left posterior-lateral chest): - Smaller eczematous irregular eruption without blisters; patient reports eczema history. 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 - Does not have chronic De Dios. 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 - Denies ever having a vegetation/endocarditis. - remission for over 30 years without any recent relapse. Mild hypokalemia: - replete today Smoking: - He has been trying to quit, has cut down to about 14 cigarettes/day. - He declines nicotine patches which have not worked for him in the past. He is okay with lozenges as needed. HTN: Resume home medications. Diet: Cardiac diet. Disposition - Currently temporarily resides at a nursing facility. - discharge planning for today on oral antibiotics - follow up with wound treatment in [place], PCP in 2-4 weeks. Physical Exam Narrative: Physical Exam Const: patient oriented x 3 and alert, coope rative HENMT: No oropharyngeal e rythema, swelling, drainage. Edentul ous. No thrush. Neck/C-Spine: no JVD Resp: normal respiratory effort and clear to auscultation bi laterally Cardio: no JVD, regular rh ythm and rhythm, S 1/S2 normal, No mu rmurs GI: nondistended, norm oactive, Soft to p alpation and non-t jazmyn Extremity: no joint enlargeme nt and no pedal ed amadeo Chronic left- sided paralysis, c ontractures. Neuro: patient oriented x 3 Skin: Left posterior lat eral proximal thig h with macerated c racked skin with e rythematous base i n the irregular sh aped large patch l ongest diameter ab out 30 cm without any active drainag e, no blisters. N o tunneling or und ermining. Smaller , about 10 cm irre gular shaped shall ow ulceration L mi d posterior latera l chest wall with some dry scaly ski n at the borders, faint erythema at the base he states due to chronic ec zema. No blisters , no drainage or c rusting. GENERA L SKIN EXAM: no mo ttling Discharge Data Studies Completed and Pending Completed Studies During Hospitalization Category Date Time Status XR chest 1V portable [id number] Stat Exams 07/02/25 05:11 Completed Pending at discharge Category Date Time Status Blood Culture Stat Lab 07/02/25 05:45 Results Complete Blood Count w/Auto AM LABS Lab 07/05/25 04:00 Ordered Comprehensive Metabolic Panel AM LABS Lab 07/05/25 04:00 Ordered Sputum Culture and Gram Stain Routine Lab 07/03/25 08:15 Results Vancomycin Trough Timed Lab 07/04/25 21:00 Ordered Radiology Impressions Chest X-Ray 07/02/25 05:11 IMPRESSION: No acute findings. Laboratory Results WBC 13.36 10^3/uL (3.29-11.43) H 07/04/25 04:28 RBC 3.95 10^6/uL (3.85-5.65) 07/04/25 04:28 Hgb 11.40 g/dL (11.27-16.99) 07/04/25 04:28 Hct 34.6 % (37-53) L 07/04/25 04:28 MCV 87.6 fl (82-101) 07/04/25 04:28 MCH 28.9 pg (27-33) 07/04/25 04:28 MCHC 32.9 g/dL (30-55) 07/04/25 04:28 RDW 12.8 % (12.1-15.1) 07/04/25 04:28 Plt Count 246 10^3/cmm (157-399) 07/04/25 04:28 MPV 8.1 fL (7.4-10.4) 07/04/25 04:28 Neut % (Auto) 80.9 % 07/04/25 04:28 Lymph % (Auto) 10.3 % 07/04/25 04:28 Edmonson % (Auto) 7.6 % 07/04/25 04:28 Eos % (Auto) 0.4 % 07/04/25 04:28 Baso % (Auto) 0.4 % 07/04/25 04:28 Neut # (Auto) 10.80 10^3/uL (1.8-7.7) H 07/04/25 04:28 Lymph # (Auto) 1.4 10^3/uL (0.8-4.8) 07/04/25 04:28 Edmonson # (Auto) 1.0 10^3/uL (0.2-0.9) H 07/04/25 04:28 Eos # (Auto) 0.1 10^3/uL (0.0-0.8) 07/04/25 04:28 Baso # (Auto) 0.1 10^3/uL (0.0-0.1) 07/04/25 04:28 Nucleated RBC % (auto) 0 % 07/04/25 04:28 Nucleated RBCs # 0.0 /100WBC 07/04/25 04:28 PT 13.20 SECONDS (12.1-14.9) 07/02/25 05:40 INR 0.93 (0.8-1.2) 07/02/25 05:40 Sodium 136 mmol/L (136-145) 07/04/25 04:28 Potassium 3.3 mmol/L (3.5-5.1) L 07/04/25 04:28 Chloride 99 mmol/L (98-107) 07/04/25 04:28 Carbon Dioxide 24 mmol/L (22-29) 07/04/25 04:28 Anion Gap 16.3 (5-19) 07/04/25 04:28 BUN 6 mg/dL (6-20) 07/04/25 04:28 Creatinine 0.3 mg/dL (0.7-1.2) L 07/04/25 04:28 GFR Calculation 310.1 mL/min (90-130) H 07/04/25 04:28 Glucose 117 mg/dL (65-115) H 07/04/25 04:28 Calculated Osmolality 281 mOsm/kg (285-295) L 07/04/25 04:28 Lactic Acid 2.2 mmol/L (0.5-2.2) 07/02/25 05:40 Lactic Acid (Sepsis) 0.8 mmol/L (0.5-2.2) 07/02/25 08:38 Calcium 8.5 mg/dL (8.5-10.5) 07/04/25 04:28 Magnesium 1.8 mg/dL (1.7-2.3) 07/02/25 05:40 Total Bilirubin 0.3 mg/dL (0.15-1.2) 07/04/25 04:28 AST 22 U/L (0-40) 07/04/25 04:28 ALT 17 U/L (0-41) 07/04/25 04:28 Alkaline Phosphatase 74 U/L (40-130) 07/04/25 04:28 Total Protein 6.8 g/dL (6.6-8.7) 07/04/25 04:28 Albumin 3.5 g/dL (3.5-5.2) 07/04/25 04:28 Globulin 3.3 g/dL (1.3-4.6) 07/04/25 04:28 Procalcitonin 0.21 ng/mL (0-0.5) 07/02/25 05:40 Urine Color Yellow (Yellow) 07/02/25 06:02 Urine Appearance Clear (CLEAR) 07/02/25 06:02 Urine pH 7.0 (5-7) 07/02/25 06:02 Ur Specific [place] 1.015 (1.005-1.030) 07/02/25 06:02 Urine Protein Negative (Negative) 07/02/25 06:02 Urine Glucose (UA) Negative (Normal) 07/02/25 06:02 Urine Ketones Negative (Negative) 07/02/25 06:02 Urine Blood Negative (Negative) 07/02/25 06:02 Urine Nitrate Negative (Negative) 07/02/25 06:02 Urine Bilirubin Negative (Negative) 07/02/25 06:02 Urine Urobilinogen 0.2 mg/dL (Negative) 07/02/25 06:02 Ur Leukocyte Esterase Negative (Negative) 07/02/25 06:02 Urine RBC 0-2 /hpf (0-2) 07/02/25 06:02 Urine WBC 0-5 /hpf (0-5) 07/02/25 06:02 Ur Squamous Epith Cells 0-5 /hpf (0-5) 07/02/25 06:02 Amorphous Sediment Not Reportable 07/02/25 06:02 Urine Bacteria None seen /hpf (NONE) 07/02/25 06:02 Hyaline Casts 0-4 /lpf H 07/02/25 06:02 Vancomycin Trough 10.8 ug/mL (10-15) 07/03/25 13:05 Adenovirus (PCR) Not detected (NOT DETECT) 07/02/25 10:02 C. pneumoniae DNA (PCR) Not detected (NOT DETECT) 07/02/25 10:02 Coronavirus 229E (PCR) Not detected (NOT DETECT) 07/02/25 10:02 Human Metapneumovir PCR Not detected (NOT DETECT) 07/02/25 10:02 Influenza A (H1) PCR Not detected (NOT DETECT) 07/02/25 10:02 Influenza A (PCR) Negative (Negative) 07/02/25 06:01 Influ A (H1/09) PCR Not detected (NOT DETECT) 07/02/25 10:02 Influenza A (H3) PCR Not detected (NOT DETECT) 07/02/25 10:02 Influenza Type A (PCR) Not detected (NOT DETECT) 07/02/25 10:02 Influenza Type B (PCR) Not detected (NOT DETECT) 07/02/25 10:02 M. pneumoniae (PCR) Not detected (NOT DETECT) 07/02/25 10:02 Parainfluenza 1 (PCR) Not detected (NOT DETECT) 07/02/25 10:02 Parainfluenza 2 (PCR) Not detected (NOT DETECT) 07/02/25 10:02 Parainfluenza 3 (PCR) Not detected (NOT DETECT) 07/02/25 10:02 Parainfluenza 4 (PCR) Not detected (NOT DETECT) 07/02/25 10:02 RSV (PCR) Negative (Negative) 07/02/25 06:01 RSV Type A (PCR) Not detected (NOT DETECT) 07/02/25 10:02 RSV Type B (PCR) Not detected (NOT DETECT) 07/02/25 10:02 Entero/Rhino (PCR) Not detected (NOT DETECT) 07/02/25 10:02 SARS-CoV-2 (PCR) Not detected (NOT DETECT) 07/02/25 10:02 Vitals Last Vital Signs Temp 98.3 F 07/04/25 07:20 Pulse 76 07/04/25 07:40 Resp 16 07/04/25 07:40 BP 179/86 07/04/25 07:20 Pulse Ox 93 07/04/25 07:40 O2 Del Method Room Air 07/04/25 07:40 FiO2 2 07/02/25 20:21 Discharge Plan Discharge Patient Disposition: Xfer [facility] Not MCR Cert Condition: Stable Prescriptions: New doxycycline hyclate 100 mg tablet 100 mg PO BID 14 Days Qty: 28 0RF Continued acetaminophen 325 mg capsule 650 mg PO QID PRN (Reason: Fever Or Pain) Acidophilus Capsule 10 mg PO DAILY amlodipine 10 mg tablet 10 mg PO DAILY fluticasone furoate [Arnuity Ellipta] 100 mcg/actuation blister with device 1 inh inhalation DAILY Artificial Tears (cmc) 1 % drops 1 drp ophthalmic (eye) BID atorvastatin 40 mg tablet 40 mg PO DAILY baclofen 20 mg tablet 20 mg PO DAILY bisacodyl 5 mg tablet,delayed release (DR/EC) 5 mg PO DAILY menthol [Blue Gel] 2 % gel 1 applic topical DAILY PRN (Reason: Pain) buspirone 15 mg tablet 15 mg PO TID clonazepam 0.5 mg tablet 0.25 mg PO BID docusate sodium 100 mg capsule 100 mg PO DAILY bisacodyl [Dulcolax (bisacodyl)] 10 mg suppository 10 mg [place] DAILY PRN (Reason: Constipation) escitalopram oxalate 10 mg tablet 10 mg PO DAILY gabapentin 600 mg tablet 600 mg PO DAILY alum-mag hydroxide-simeth [Brianna-Lanta] 200-200-20 mg/5 mL suspension 15 ml PO QID PRN (Reason: Constipation) Rx Instructions: administer between meals and at bedtime lisinopril 20 mg tablet 20 mg PO DAILY magnesium hydroxide [Milk Of Magnesia Concentrated] 2,400 mg/10 mL suspension 5 ml PO DAILY PRN (Reason: Constipation) mirtazapine 30 mg tablet 30 mg PO DAILY naloxone 2 mg/2 mL syringe kit 2 mg IM Q2M PRN (Reason: overdose) Rx Instructions: NTExceed 10 mg total dose/episode hydrocodone-acetaminophen 10-325 mg tablet 1 tab PO Q6H PRN (Reason: Pain) omeprazole 40 mg capsule,delayed release(DR/EC) 40 mg PO DAILY oxcarbazepine 600 mg tablet 600 mg PO TID albuterol sulfate 90 mcg/actuation HFA aerosol inhaler 1 inh inhalation QID cetirizine [Zyrtec] 10 mg tablet 10 mg PO DAILY PRN (Reason: allergies) (DME) Lace Up Ankle Brace See Rx Instructions .Route .MEDSUPPLY Qty: 1 0RF Rx Instructions: As directed tamsulosin 0.4 mg capsule 0.8 mg PO BEDTIME medroxyprogesterone 5 mg tablet 5 mg PO BEDTIME quetiapine 100 mg tablet 100 mg PO BEDTIME oxybutynin chloride 5 mg tablet extended release 24hr 5 mg PO QAM risperidone 0.5 mg tablet 0.5 mg PO BEDTIME tizanidine 2 mg tablet 2 mg PO BID guaifenesin 400 mg Tablet 400 mg PO BID sodium chloride 1,000 mg Tablet,Soluble 1,000 mg PO QID Discharge Order = DC NOW: Discharge Order (Routine); Ordered 07/04/25 Ordered By: Venkatesh Robbins Referrals: Juan Watson MD [Primary Care Provider, Family Practice] Discharge Diet: Usual diet Discharge Activity: Resume usual activity Discharge Attestations Time Spent in Discharge Care*: greater than 30 min Specific Discharge Activities: educating patient, educating and/or supporting family/caregiver, discussing with pcp/other providers, discussing with insurance case manager/social workers/dc planners, documenting/other paperwork and evaluating patient/reviewing data Time Spent in Smoking Cessation: 3 to 10 minutes Quality Metrics Clinical Quality Measures [ No reported AMI, CVA or VTE this stay] Coding Level of Care Code Acute Code for Chg Fwd Diagnoses Sepsis A41.9
--- NOTE | 2025-07-04 11:00 | PC.NURSE ---
Took over care of patient at this time.
--- NOTE | 2025-07-04 13:03 | PC.NURSE ---
Report called to [facility] at this time.
== END 2025-07-04 16:15 | disposition skilled nursing facility (03) ==
LOC: ER 06:01 → MEDSURG 08:16
PROVIDERS: Emergency Medicine; Admitting Provider Internal Medicine; Emergency Provider Family Medicine; PCP Family Medicine; Visit Provider Internal Medicine
DX: A41.9 Sepsis, unspecified organism (principal); K21.9 Gastro-esophageal reflux disease without esophagitis; Z86.73 Personal history of transient ischemic attack (TIA), and cerebral infarction without residual deficits; E78.5 Hyperlipidemia, unspecified; I10 Essential (primary) hypertension; F32.A Depression, unspecified; F17.210 Nicotine dependence, cigarettes, uncomplicated
CPT/HCPCS: 36415; 71045; 80053; 80202; 81001; 83605; 83735; 84145; 85025; 85610; 87040; 87070; 87205; 87486; 87581; 87633; 87637; 92507; 92523; 92526; 92610; 93005; 94640; 96372; G0378; J1652; J2185; J2270; J2405; J3373; J7030; J7050; J7626; J9999

== ENCOUNTER 2025-07-18 22:44 | Emergency (ER) | payer OTHER, MEDICAID, SELFPAY ==
--- NOTE | 2025-07-18 22:46 | ECG_ITS ---
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: : 1970 Requested By: Stephen Pan Order Number: [id number] Reading MD: SVEN STEINBERG Measurements Intervals Bronson Rate: 68 P: 56 [place]: 213 QRS: 62 QRSD: 92 T: 88 QT: 400 QTc: 428 Interpretive Statements SINUS RHYTHM WITH FIRST DEGREE AV BLOCK ST ELEVATION, PROBABLY EARLY REPOLARIZATION [ST ELEVATION WITH NORMALLY INFLECTED T-WAVE] NONSPECIFIC ST & T-WAVE ABNORMALITY Compared to ECG 07/02/2025 05:34:54 First degree AV block now present ST (T wave) deviation now present Early repolarization now present Sinus tachycardia no longer present T-wave abnormality still present Electronically Signed On 07-20-2025 23:25:08 CDT by SVEN STEINBERG [email or web address]
[2025-07-18 22:50] VITALS: BP 130/89; PULSE 76; RESP 20; TEMP 36.2; O2SAT 95; BMI 25.7
[2025-07-18 23:04] VITALS: BP 130/89; PULSE 68; RESP 18; O2SAT 95
--- NOTE | 2025-07-18 23:13 | XRR_ITS ---
PROCEDURE INFORMATION: Exam: XR Chest Exam date and time: 07/18/2025 11:27 PM Age: 54 years old Clinical indication: Shortness of breath; Additional info: SOB TECHNIQUE: Imaging protocol: Radiologic exam of the chest. Views: 1 view. COMPARISON: CR (CHEST, ) 07/02/2025 5:15 AM FINDINGS: Lungs: Right hilar to lower lobe atelectasis versus minimal infiltrate. Pleural spaces: Unremarkable. No pleural effusion. No pneumothorax. Heart/Mediastinum: Unremarkable. No cardiomegaly. Bones/joints: Unremarkable. XR/XR chest 1V portable [id number] IMPRESSION: Right hilar to lower lobe atelectasis versus minimal infiltrate.
--- OUTSIDE RECORDS SUMMARY | 2025-07-18 23:29 | XMS_ITS | Encounter Summary ---
Author Organization [facility] Address [address] [place] [address] Care Team Providers Care Deputy Sheriff/Investigator Name Role Phone Unavailable Primary Care Provider Unavailabl e Encounter Details Date Type Department Care Team (Late Contact Info) Description 06/19/2025 Results [facility] [address] [place] [address] Micheline Rizo FNP [address] [place] [address] XR VIDEOURODYNAMICS Social History Tobacco Use Types Packs/Day Years Used Date Smoking Tobacco: Every Day Cigarettes Smokeless Tobacco: Never Alcohol Use Standard Drinks/Week Comments No 0 (1 standard drink = 0.6 oz pur e alcohol) Sex and Gender Information Value Date Recorded Sex Assigned at Not on file Legal Sex Male 12:32 PM INSTRUCTION ASSISTANT PRINCIPAL Gender Identity Not on file Sexual Orientation Not on file documented as of this encounter Plan of Treatment Upcoming Encounters Date Type Department Care Team (Late st Contact Info) Description 08/19/2025 10:00 AM INSTRUCTION ASSISTANT PRINCIPAL Appointment [facility] [place] [address] [place] [address] Gian Walton MD [address] [place] [phone] 09/18/2025 3:30 PM INSTRUCTION ASSISTANT PRINCIPAL Office Visit [facility] Urology [address] [place] [address] Micheline Rizo, LAP MACHINE OPERATOR [address] [place] [address] documented as of this encounter Visit Diagnoses Not on filedocumented in this encounter
--- OUTSIDE RECORDS SUMMARY | 2025-07-18 23:29 | XMS_ITS | Encounter Summary ---
Author Organization [facility] Address [address] [place] [address] Care Team Providers Care Eviction Specialist Name Role Phone Unavailable Primary Care Provider Unavailabl e Encounter Details Date Type Department Care Team (Late st Contact Info) Description 03/13/2002 Outpatient Historical HIS [facility] Tho Lal MD [address] [address] Social History Tobacco Use Types Packs/Day Years Used Date Smoking Tobacco: Never Assessed Sex and Gender Information Value Date Recorded Sex Assigned at Not on file Legal Sex Male 12:32 PM GELATIN POWDER MIXER Gender Identity Not on file Sexual Orientation Not on file documented as of this encounter Plan of Treatment Upcoming Encounters Date Type Department Care Team (Late st Contact Info) Description 08/19/2025 10:00 AM GELATIN POWDER MIXER Appointment [facility] [place] [address] [place] [address] Gian Walton MD [address] [place] [phone] 09/18/2025 3:30 PM GELATIN POWDER MIXER Office Visit [facility] Urology [address] [place] [address] Micheline Rizo FNP [address] [place] [address] [address] [place] [address] documented as of this encounter Visit Diagnoses Not on filedocumented in this encounter
--- OUTSIDE RECORDS SUMMARY | 2025-07-18 23:29 | XMS_ITS | Encounter Summary ---
Author Organization [employer] Address [address] [place] [address] Care Team Providers Care Load Blocker Name Role Phone Unavailable Primary Care Provider Unavailabl e Reason for Visit * Reason Onset Date Comments Bring Lab work 07/16/2025 Encounter Details Date Type Department Care Team (Late Contact Info) Description 07/16/2025 Telephone [facility] [address] [place] [address] Micheline Rizo FNP [facility] [address] [place] [address] Bring Lab work Social History Tobacco Use Types Packs/Day Years Used Date Smoking Tobacco: Every Day Cigarettes Smokeless Tobacco: Never Alcohol Use Standard Drinks/Week Comments No 0 (1 standard drink = 0.6 oz pur e alcohol) Sex and Gender Information Value Date Recorded Sex Assigned at Not on file Legal Sex Male 12:32 PM VINYL INSTALLER Gender Identity Not on file Sexual Orientation Not on file documented as of this encounter Miscellaneous Notes * Telephone Encounter - Yasmeen Robles - 07/16/2025 2:32 PM CDT Called intermediate to request that they bring any lab work that has been done, dye beck reel operator will give to the nurse to let her know documented in this encounter Plan of Treatment Upcoming Encounters Date Type Department Care Team (Late Contact Info) Description 08/19/2025 10:00 AM VINYL INSTALLER Appointment [facility] [place] [address] [place] [phone] Gian Walton MD [address] [place] [address] 09/18/2025 3:30 PM VINYL INSTALLER Office Visit [facility] [address] [place] [address] Micheline Rizo FNP [address] [place] [address] [address] [place] [address] documented as of this encounter Visit Diagnoses Not on filedocumented in this encounter
--- OUTSIDE RECORDS SUMMARY | 2025-07-18 23:29 | XMS_ITS | Clinical Summary ---
Author Organization [employer] Address [address] [place]: Epic Prelude ADT [place] [address] Care Team Providers Care Advertising Project Manager Name Role Phone Unavailable Primary Care Provider [...] Encounters Date Type Department Care Team Description 07/16/2025 Telephone [place] [address] [place] [address] Micheline Rizo FNP Bring Lab work 07/02/2025 9:00 AM CDT - 07/02/2025 11:59 PM CDT Hospital Encounter [facility] [address] [address] Ambulance, [facility] Discharge Disposition: Short term [facility] 06/30/2025 Orders Only [place] [address] [place] [address] Micheline Rzio FNP BPH with obstruction/lower urinary tract symptoms (Primary Dx); Urinary hesitancy; Gross hematuria 06/24/2025 External Device Data STL ABSTRACTION Provider, Abstract 06/19/2025 Results Follow-Up [place] [address] [place] [address] Micheline Rizo FNP XR VIDEOURODYNAMICS 06/18/2025 6:43 AM CDT - 06/18/2025 11:59 PM CDT Hospital Encounter [facility] [address] [place] [address] Micheline Rizo FNP Discharge Disposition: Home or Self Care 05/14/2025 External Device Data STL ABSTRACTION Provider, Abstract 04/23/2025 External Device Data STL ABSTRACTION Provider, Abstract 04/23/2025 External Device Data STL ABSTRACTION Provider, Abstract from Last 3 Months Family History Medical [...] on file Legal Sex Male 12:32 PM DATASTAGE ARCHITECT Gender Identity Not on file Sexual Orientation [...] st Contact Info) Description 08/19/2025 10:00 AM DATASTAGE ARCHITECT Appointment [facility] Neurology [facility] [address] [place] [address] Gian Walton MD [address] [place] [address] 09/18/2025 3:30 PM DATASTAGE ARCHITECT Office Visit [facility] [place] [address] [place] [address] Micheline Rizo GLOBAL SECURITY ARCHITECT [address] [place] [address] Health Maintenance Due Date Last Done Comments [...] with a strain pattern residual. CYSTOMETRY: The 7-Greenlandic urodynamic catheter, rectal catheter, and patch EMG [...] as his bladder was empty Micheline Rizo GLOBAL SECURITY ARCHITECT DIAGNOSTIC IMAGING ORDERAB LES Final Result from Last 3 Months Insurance [facility] DUAL COMPLETE O [facility] [id number] RX [employer] RX Member Subscriber Plan / Payer (Ef fective 2024-Present) Name:Cy Blankenship Relation to Subscriber:Not on file Name:Krzysztof Cy Subscriber ID:Not on file Date of :1970 Payer ID:Not on file Group ID:[id number] Type:RX Medicare Part D Address: [place]
--- OUTSIDE RECORDS SUMMARY | 2025-07-18 23:29 | XMS_ITS | Encounter Summary ---
Author Organization [facility] Address [address] [place] [address] Care Team Providers Care Chopping Machine Operator Name Role Phone Unavailable Primary Care Provider Unavailabl e Encounter Details Date Type Department Care Team (Late st Contact Info) Description 03/26/2002 Outpatient Historical HIS [facility] Tho Lal MD [address] [address] Social History Tobacco Use Types Packs/Day Years Used Date Smoking Tobacco: Never Assessed Sex and Gender Information Value Date Recorded Sex Assigned at Not on file Legal Sex Male 12:32 PM BOTTOM STAINER Gender Identity Not on file Sexual Orientation Not on file documented as of this encounter Plan of Treatment Upcoming Encounters Date Type Department Care Team (Late st Contact Info) Description 08/19/2025 10:00 AM BOTTOM STAINER Appointment [facility] [place] [address] [place] [address] Gian Walton MD [address] [place] [phone] 09/18/2025 3:30 PM BOTTOM STAINER Office Visit [facility] Urology [address] [place] [address] Micheline Rizo FNP [address] [place] [address] [address] [place] [address] documented as of this encounter Visit Diagnoses Not on filedocumented in this encounter
--- NOTE | 2025-07-18 23:37 | W.ED.URI ---
HPI - URI/Sore Throat General: Chief Complaint: Upper Respiratory Infection Stated Complaint: coughing up blood, cp Time Seen by Provider: 07/18/25 22:57 History of Present Illness: 55-year-old male gentleman [facility]. He has had a large stroke in the past. He presents with an ongoing cough. Evidently had some hemoptysis there. He complained of chest pain with his cough. No chest pain at all currently. He is not coughing currently. Of note, he had a nosebleed earlier in the day according to EMS. The patient is lethargic, poor historian, and does not give much information. Evidently, he took all of his nighttime medication prior to arrival, which includes muscle relaxers, sedatives, etc. Related Data Home Medications ?Medication ?Instructions ?Recorded ?Confirmed Lactobacillus acidophilus 10 mg PO DAILY 04/12/24 07/02/25 (Acidophilus capsule) acetaminophen 325 mg capsule 650 mg PO QID PRN Fever Or Pain 04/12/24 07/02/25 albuterol sulfate 90 mcg/actuation 1 inh inhalation QID 04/12/24 07/02/25 aerosol inhaler aluminum-mag hydroxide-simethicone 15 ml PO QID PRN Constipation 04/12/24 07/02/25 200 mg-200 mg-20 mg/5 mL oral susp (Brianna-Lanta) amlodipine 10 mg tablet 10 mg PO DAILY 04/12/24 07/02/25 atorvastatin 40 mg tablet 40 mg PO DAILY 04/12/24 07/02/25 baclofen 20 mg tablet 20 mg PO DAILY 04/12/24 07/02/25 bisacodyl 10 mg rectal suppository 10 mg [place] DAILY PRN Constipation 04/12/24 07/02/25 (Dulcolax (bisacodyl)) bisacodyl 5 mg tablet,delayed 5 mg PO DAILY 04/12/24 07/02/25 release buspirone 15 mg tablet 15 mg PO TID 04/12/24 07/02/25 carboxymethylcellulose sodium 1 % 1 drp ophthalmic (eye) BID 04/12/24 07/02/25 eye drops (Artificial Tears (carboxymethylcellulose)) cetirizine 10 mg tablet (Zyrtec) 10 mg PO DAILY PRN allergies 04/12/24 07/02/25 clonazepam 0.5 mg tablet 0.25 mg PO BID 04/12/24 07/02/25 docusate sodium 100 mg capsule 100 mg PO DAILY 04/12/24 07/02/25 escitalopram oxalate 10 mg tablet 10 mg PO DAILY 04/12/24 07/02/25 fluticasone furoate 100 1 inh inhalation DAILY 04/12/24 07/02/25 mcg/actuation blister powder for inhalation (Arnuity Ellipta) gabapentin 600 mg tablet 600 mg PO DAILY 04/12/24 07/02/25 hydrocodone 10 mg-acetaminophen 1 tab PO Q6H PRN Pain 04/12/24 07/02/25 325 mg tablet lisinopril 20 mg tablet 20 mg PO DAILY 04/12/24 07/02/25 magnesium hydroxide 2,400 mg/10 mL 5 ml PO DAILY PRN Constipation 04/12/24 07/02/25 oral suspension (Milk Of Magnesia Concentrated) menthol 2 % topical gel (Blue Gel) 1 applic topical DAILY PRN Pain 04/12/24 07/02/25 mirtazapine 30 mg tablet 30 mg PO DAILY 04/12/24 07/02/25 naloxone 2 mg/2 mL syringe kit 2 mg IM Q2M PRN overdose 04/12/24 07/02/25 omeprazole 40 mg capsule,delayed 40 mg PO DAILY 04/12/24 07/02/25 release oxcarbazepine 600 mg tablet 600 mg PO TID 04/12/24 07/02/25 guaifenesin 400 mg tablet 400 mg PO BID 07/02/25 07/02/25 medroxyprogesterone 5 mg tablet 5 mg PO BEDTIME 07/02/25 07/02/25 oxybutynin chloride 5 mg 5 mg PO QAM 07/02/25 07/02/25 tablet,extended release 24 hr quetiapine 100 mg tablet 100 mg PO BEDTIME 07/02/25 07/02/25 risperidone 0.5 mg tablet 0.5 mg PO BEDTIME depressive 07/02/25 07/02/25 disorder sodium chloride 1,000 mg soluble 1,000 mg PO QID 07/02/25 07/02/25 tablet tamsulosin 0.4 mg capsule 0.8 mg PO BEDTIME 07/02/25 07/02/25 tizanidine 2 mg tablet 2 mg PO BID 07/02/25 07/02/25 Previous Rx's ?Medication ?Instructions ?Recorded Lace Up Ankle Brace #1 ea 12/24/24 Allergies Allergy/AdvReac Type Severity Reaction Status Date / Time adhesive tape Allergy Intermediate Unknown Verified 12/24/24 09:29 Fish Containing Products Allergy Intermediate Unknown Verified 12/24/24 09:29 heparin Allergy Intermediate Unknown Verified 12/24/24 09:29 Penicillins Allergy Intermediate Unknown Verified 12/24/24 09:29 tomato Allergy Intermediate Unknown Verified 12/24/24 09:29 PFSH ED PFSH: Medical History History of CVA (cerebrovascular accident) GERD (gastroesophageal reflux disease) Depression Hyperlipidemia HTN (hypertension) Degenerative joint disease of right hip Surgical History History of craniectomy Social History Smoking and tobacco/nicotine status: current every day tobacco/nicotine user cigarettes [ Other cigarette details: 14] Alcohol intake: former Former alcohol use details: Has not had any alcohol in several years Substance/Drug Use: former Former substance use details: Smoking THC cartridges over 6 months ago. 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 Physical Exam Const: COMMON NORMALS: no acute distress GENERAL APPEARANCE: cooperative, lethargic and frail appearing; not ill appearing ORIENTATION/CONSCIOUSNESS: Yes lethargic HENMT: COMMON NORMALS: normocephalic, atraumatic and Normal external nose present HEAD & SCALP: normocephalic and atraumatic FACE & SINUS: normal facial exam and face symmetric NOSE: Normal external nose present Eye: COMMON NORMALS: Equal, round and reactive pupils present and EOMs intact bilaterally PUPIL: Yes Equal, round and reactive pupils present Neck/C-Spine: GENERAL: Yes trachea midline Chest: CHEST: Yes Symmetrical chest wall rise Resp: COMMON NORMALS: normal respiratory effort, No retractions, No use of accessory muscles and clear to auscultation bilaterally AUSCULTATION: clear to auscultation bilaterally Cardio: COMMON NORMALS: regular rate and regular rhythm RATE: regular rate RHYTHM: regular rhythm GI: COMMON NORMALS: Normal to inspection, nondistended, normoactive bowel sounds present Extremity: COMMON NORMALS: no pedal edema Neuro: YAMILETH COMA SCALE: document GCS findings Yamileth coma scale eye opening: Spontaneous Yamileth coma scale verbal response: Orientated Yamileth coma scale motor response: Obey commands Yamileth coma scale total score: 15 SENSORIUM/ORIENTATION: Yes lethargic SENSORY EXAM: Yes extremities (intact) Psych: COMMON NORMALS: speech normal SPEECH: Yes normal speech Skin: COMMON NORMALS: no rashes or lesions noted GENERAL SKIN EXAM: no rashes or lesions noted Course Vital Signs: Vital signs: Vital Signs Temperature 97.1 F L 07/18/25 22:50 Pulse Rate 71 07/19/25 04:30 Respiratory Rate 19 H 07/19/25 04:30 Blood Pressure 130/89 07/19/25 04:30 Pulse Oximetry 96 07/19/25 04:30 Oxygen Delivery Me thod Room Air 07/19/25 03:56 MDM - URI/Sore Throat Medical Decision Making The patient is a poor historian himself, somewhat lethargic from sedation from medication, and does not answer questions well. He does not complain of chest pain currently. There is no pain or shortness of breath. He has had no hemoptysis since he has been here. His hemoglobin is stable 11.1. His potassium is 3.1 and is repleted. His vital signs are stable. He is normotensive. He is not diaphoretic. His EKG showed minimal ST elevation less than 1 mm in the inferior leads on his original EKG. At his 2-hour EKG, there is diffuse ST elevation in all leads, with normally inflected ST segments indicative of likely early repolarization. Showed EKGs to cardiology and consulted over the phone. Cardiology agrees. First troponin was 40. 2-hour troponin is 41. The patient has no pain currently. He does not appear ill. Chest x-ray shows right lower lobe atelectasis that is minimal. He is stable for discharge. He will go back to the jail. To return for new or worsening symptoms. Lab Data 07/18/25 23:20 07/18/25 23:20 Radiology Impressions Chest X-Ray 07/18/25 23:13 IMPRESSION: Right hilar to lower lobe atelectasis versus minimal infiltrate. Laboratory Results WBC 6.93 10^3/uL (3.29-11.43) 07/18/25 23:20 RBC 3.86 10^6/uL (3.85-5.65) 07/18/25 23:20 Hgb 11.10 g/dL (11.27-16.99) L 07/18/25 23:20 Hct 33.4 % (37-53) L 07/18/25 23:20 MCV 86.5 fl (82-101) 07/18/25 23:20 MCH 28.8 pg (27-33) 07/18/25 23:20 MCHC 33.2 g/dL (30-55) 07/18/25 23:20 RDW 13.0 % (12.1-15.1) 07/18/25 23:20 Plt Count 339 10^3/cmm (157-399) 07/18/25 23:20 MPV 8.2 fL (7.4-10.4) 07/18/25 23:20 Neut % (Auto) 54.9 % 07/18/25 23:20 Lymph % (Auto) 24.4 % 07/18/25 23:20 Finney % (Auto) 12.6 % 07/18/25 23:20 Eos % (Auto) 6.5 % 07/18/25 23:20 Baso % (Auto) 1.3 % 07/18/25 23:20 Neut # (Auto) 3.81 10^3/uL (1.8-7.7) 07/18/25 23:20 Lymph # (Auto) 1.7 10^3/uL (0.8-4.8) 07/18/25 23:20 Finney # (Auto) 0.9 10^3/uL (0.2-0.9) 07/18/25 23:20 Eos # (Auto) 0.5 10^3/uL (0.0-0.8) 07/18/25 23:20 Baso # (Auto) 0.1 10^3/uL (0.0-0.1) 07/18/25 23:20 Nucleated RBC % (auto) 0 % 07/18/25 23:20 Nucleated RBCs # 0.0 /100WBC 07/18/25 23:20 Sodium 136 mmol/L (136-145) 07/18/25 23:20 Potassium 3.1 mmol/L (3.5-5.1) L 07/18/25 23:20 Chloride 107 mmol/L (98-107) 07/18/25 23:20 Carbon Dioxide 20 mmol/L (22-29) L 07/18/25 23:20 Anion Gap 12.1 (5-19) 07/18/25 23:20 BUN 13 mg/dL (6-20) 07/18/25 23:20 Creatinine 0.3 mg/dL (0.7-1.2) L 07/18/25 23:20 GFR Calculation 310.1 mL/min (90-130) H 07/18/25 23:20 Glucose 79 mg/dL (65-115) 07/18/25 23:20 Calculated Osmolality 281 mOsm/kg (285-295) L 07/18/25 23:20 Lactic Acid 0.6 mmol/L (0.5-2.2) 07/18/25 23:20 Calcium 7.0 mg/dL (8.5-10.5) L 07/18/25 23:20 Total Bilirubin 0.2 mg/dL (0.15-1.2) 07/18/25 23:20 AST 16 U/L (0-40) 07/18/25 23:20 ALT 13 U/L (0-41) 07/18/25 23:20 Alkaline Phosphatase 57 U/L (40-130) 07/18/25 23:20 Troponin T Baseline 40 ng/L (0-15) H 07/18/25 23:20 Troponin T 120 Minute 41.10 ng/L (0-15) H 07/19/25 01:23 Delta Troponin T 1.10 ABS# (0-10) 07/19/25 01:23 NT-Pro-B Natriuret Pep 63 pg/mL (0-125) 07/18/25 23:20 Total Protein 5.2 g/dL (6.6-8.7) L 07/18/25 23:20 Albumin 3.1 g/dL (3.5-5.2) L 07/18/25 23:20 Globulin 2.1 g/dL (1.3-4.6) 07/18/25 23:20 Influenza A (PCR) Negative (Negative) 07/18/25 23:45 Influenza Type B (PCR) Negative (Negative) 07/18/25 23:45 RSV (PCR) Negative (Negative) 07/18/25 23:45 SARS-CoV-2 (PCR) Negative (Negative) 07/18/25 23:45 All radiology interpretation(s) finalized by discharge Discharge Plan Discharge Patient Disposition: Home Clinical Impression: Upper respiratory infection, Chest pain Condition: Stable Prescriptions: No Action acetaminophen 325 mg capsule 650 mg PO QID PRN (Reason: Fever Or Pain) Acidophilus Capsule 10 mg PO DAILY amlodipine 10 mg tablet 10 mg PO DAILY fluticasone furoate [Arnuity Ellipta] 100 mcg/actuation blister with device 1 inh inhalation DAILY Artificial Tears (cmc) 1 % drops 1 drp ophthalmic (eye) BID atorvastatin 40 mg tablet 40 mg PO DAILY baclofen 20 mg tablet 20 mg PO DAILY bisacodyl 5 mg tablet,delayed release (DR/EC) 5 mg PO DAILY menthol [Blue Gel] 2 % gel 1 applic topical DAILY PRN (Reason: Pain) buspirone 15 mg tablet 15 mg PO TID clonazepam 0.5 mg tablet 0.25 mg PO BID docusate sodium 100 mg capsule 100 mg PO DAILY bisacodyl [Dulcolax (bisacodyl)] 10 mg suppository 10 mg [place] DAILY PRN (Reason: Constipation) escitalopram oxalate 10 mg tablet 10 mg PO DAILY gabapentin 600 mg tablet 600 mg PO DAILY alum-mag hydroxide-simeth [Brianna-Lanta] 200-200-20 mg/5 mL suspension 15 ml PO QID PRN (Reason: Constipation) Rx Instructions: administer between meals and at bedtime lisinopril 20 mg tablet 20 mg PO DAILY magnesium hydroxide [Milk Of Magnesia Concentrated] 2,400 mg/10 mL suspension 5 ml PO DAILY PRN (Reason: Constipation) mirtazapine 30 mg tablet 30 mg PO DAILY naloxone 2 mg/2 mL syringe kit 2 mg IM Q2M PRN (Reason: overdose) Rx Instructions: NTExceed 10 mg total dose/episode hydrocodone-acetaminophen 10-325 mg tablet 1 tab PO Q6H PRN (Reason: Pain) omeprazole 40 mg capsule,delayed release(DR/EC) 40 mg PO DAILY oxcarbazepine 600 mg tablet 600 mg PO TID albuterol sulfate 90 mcg/actuation HFA aerosol inhaler 1 inh inhalation QID cetirizine [Zyrtec] 10 mg tablet 10 mg PO DAILY PRN (Reason: allergies) (DME) Lace Up Ankle Brace See Rx Instructions .Route .MEDSUPPLY Qty: 1 0RF Rx Instructions: As directed tamsulosin 0.4 mg capsule 0.8 mg PO BEDTIME medroxyprogesterone 5 mg tablet 5 mg PO BEDTIME quetiapine 100 mg tablet 100 mg PO BEDTIME oxybutynin chloride 5 mg tablet extended release 24hr 5 mg PO QAM risperidone 0.5 mg tablet 0.5 mg PO BEDTIME tizanidine 2 mg tablet 2 mg PO BID guaifenesin 400 mg Tablet 400 mg PO BID sodium chloride 1,000 mg Tablet,Soluble 1,000 mg PO QID Discharge Orders: Discharge ED (Routine); Ordered 07/19/25 Ordered By: Stephen Bowens Referrals: Juan Watson MD [Primary Care Provider, Family Practice] - 1-3 days Patient Instructions: Chest Pain (ED), Upper Respiratory Infection (ED), Opioid Safety, Pain Management, Patient Portal & Dar Instructions Activity Restrictions/Additional Instructions: Return for repeated episodes of chest pain, shortness of breath, Print Language: Iraqi Coding Level of Care Code ED Advice Line Rn for Danny Pelaez
[2025-07-18 23:46] LABS: Hematocrit 33.4 % (37-53); Hemoglobin 11.10 g/dL (11.27-16.99); Mean Corpuscular HGB Conc 33.2 g/dL (30-55); Mean Corpuscular Hemoglobin 28.8 pg (27-33); Mean Corpuscular Volume 86.5 fl (82-101); Nucleated Red Blood Cells % 0 %; Platelet Count 339 10^3/cmm (157-399); Red Blood Count 3.86 10^6/uL (3.85-5.65); White Blood Count 6.93 10^3/uL (3.29-11.43)
[2025-07-19 00:41] LABS: Respiratory Syncytial Virus Ce NEGATIVE (Negative); SARS-CoV-2 PCR NEGATIVE (Negative)
[2025-07-19 00:48] VITALS: BP 130/89; RESP 18; O2SAT 96
[2025-07-19 01:00] LABS: Lactic Sepsis W/Reflex 0.6 mmol/L (0.5-2.2)
[2025-07-19 01:05] LABS: Troponin(5th) Baseline 40 ng/L (0-15)
[2025-07-19 01:12] LABS: Alanine Aminotransferase 13 U/L (0-41); Albumin Level 3.1 g/dL (3.5-5.2); Alkaline Phosphatase 57 U/L (40-130); Anion Gap 12.1 (5-19); Aspartate Amino Transferase 16 U/L (0-40); Blood Urea Nitrogen 13 mg/dL (6-20); Calcium 7.0 mg/dL (8.5-10.5); Carbon Dioxide 20 mmol/L (22-29); Chloride 107 mmol/L (98-107); Globulin 2.1 g/dL (1.3-4.6); Glucose 79 mg/dL (65-115); NT Pro B Type Natriuretic Pept 63 pg/mL (0-125); Osmolality Calculated 281 mOsm/kg (285-295); Potassium 3.1 mmol/L (3.5-5.1); Sodium 136 mmol/L (136-145); Total Protein 5.2 g/dL (6.6-8.7)
--- NOTE | 2025-07-19 01:14 | ECG_ITS ---
Vertical Acuity Test Date: 2025-07-19 Pat Name: Cy Blankenship Department: Room: Gender: Male Philosophy Specialist: : [id number] Requested By: Stephen Pan Order Number: [id number] Estee MD: SVEN STEINBERG Measurements Intervals [place] Rate: 61 P: 67 MN: 228 QRS: 64 QRSD: 97 T: 89 QT: 416 QTc: 421 Interpretive Statements SINUS RHYTHM WITH FIRST DEGREE AV BLOCK MINIMAL VOLTAGE CRITERIA FOR LVH, CONSIDER NORMAL VARIANT [MEETS CRITERIA IN ONE OF: R(aVL), S(V1), R(V5), R(V5/V6)+S(V1)] ST ELEVATION CONSISTENT WITH INJURY, PERICARDITIS, OR EARLY REPOLARIZATION [ST ELEVATION W/O NORMALLY INFLECTED T-WAVE] NONSPECIFIC ST & T-WAVE ABNORMALITY Compared to ECG 07/18/2025 22:46:09 No significant changes Electronically Signed On 07-20-2025 23:32:20 CDT by SVEN STEINBERG [email or web address]
[2025-07-19 01:17] LABS: Creatinine Clr Calc Pharmacy 328.9536
[2025-07-19 01:34] VITALS: BP 130/89; O2SAT 96
[2025-07-19 02:00] LABS: Troponin 5 2HR 41.10 ng/L (0-15); Troponin 5 2HR Delta 1.10 ABS# (0-10)
[2025-07-19] MEDS: potassium chloride oral liq 20 mEq/15 mL UDC 40 MEQ PO (02:23)
[2025-07-19 02:37] VITALS: BP 130/89; PULSE 61; O2SAT 95
--- NOTE | 2025-07-19 03:16 | PC.NURSE ---
report called to Kirsten at [facility] at 1402
[2025-07-19 03:56] VITALS: BP 130/89; PULSE 63; O2SAT 94
[2025-07-19 04:30] VITALS: BP 130/89; PULSE 71; RESP 19; O2SAT 96
== END 2025-07-19 04:32 | disposition home or self-care (01) ==
PROVIDERS: Emergency Provider Emergency Medicine; PCP Family Medicine
DX: J06.9 Acute upper respiratory infection, unspecified (principal); R07.9 Chest pain, unspecified; Z11.52 Encounter for screening for COVID-19; F17.210 Nicotine dependence, cigarettes, uncomplicated; E78.5 Hyperlipidemia, unspecified; I10 Essential (primary) hypertension; Z86.73 Personal history of transient ischemic attack (TIA), and cerebral infarction without residual deficits
CPT/HCPCS: 36415; 71045; 80053; 83605; 83880; 84484; 85025; 87040; 87637; 93005; 99285; J9999